=== PATIENT | female | born 1960 | race Caucasian/White ===

== ENCOUNTER 2017-05-04 18:20 | Emergency (ER) | payer BC ==
[2017-05-04 18:23] VITALS: BP 144/88; BMI 34.7
[2017-05-04 18:43] LABS: BILIRUBIN,URINE NEGATIVE (NEGATIVE); BLOOD/HEMOGLOBIN,URINE 1+ (NEGATIVE); GLUCOSE, URINE NEGATIVE (NEGATIVE); KETONES,URINE NEGATIVE (NEGATIVE); LEUKOCYTE ESTERASE ,URINE 3+ (NEGATIVE); NITRITES,URINE NEGATIVE (NEGATIVE); PROTEIN,URINE 1+ (NEGATIVE); UROBILINOGEN,URINE NORMAL (NORMAL)
[2017-05-04 18:52] LABS: APPEARANCE,URINE SLIGHTLY HAZY (CLEAR); COLOR,URINE YELLOW (YELLOW); RBC,URINE 0-2 /HPF (NEGATIVE)
[2017-05-04 18:53] LABS: BACTERIA,URINE 1+ /HPF (NEGATIVE); SQUAMOUS EPITHELIAL CELL,UR FEW /HPF (NEGATIVE)
[2017-05-04] MEDS ORDERED: MORPHINE SULFATE INJ 4 MG IVP ONE (19:08)
[2017-05-04] MEDS ORDERED: MORPHINE SULFATE INJ 4 MG IM ONE (19:10)
[2017-05-04] MEDS ORDERED: MORPHINE SULFATE INJ 4 MG ONE (19:10)
[2017-05-04] MEDS ORDERED: ZOFRAN INJ 4 MG VIAL IM ONE (19:10)
[2017-05-04] MEDS ORDERED: ZOFRAN INJ 4 MG VIAL ONE (19:10)
--- NOTE | 2017-05-04 19:12 | DR.GENAD ---
HPI - PCP Primary Care Physician: OLIVERIO MCKNIGHT - HPI Comment HPI Comment: PATIENT FEELS FEVERISH. NO N/V. SYMTOMS GETTING WORSE. - Complaint/Symptoms Chief Complaint Doctors Comments: GENERALIZE ACHES AND PAIN, RT FLANK PAIN AND LOWER BACK PAIN SINCE THIS AM. Chief Complaint:: PT. C/O LOWER BACK PAIN AND RIGHT FLANK PAIN THAT BEGAN THIS MORNING. PT. DENIES INJURY. 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 PT. SAYS SHE FEELS FEVERISH AND ACHY. - Nurses notes reviewed Nurses Notes Review: Yes - Source History Provided: Patient - Mode of Arrival Mode of Arrival: Ambulatory - Timing Onset of Chief Complaint: 05/04/17 Came on: Suddenly - Duration Duration: Constant Duration: Hours - Severity Severity: Moderate PMH - PMH Past Medical History: Yes Past Medical History: Diabetes, Migraines, Hypertension, Kidney Stones Past Surgical History: Yes Surgical History: Appendectomy, Cholecystectomy, Hysterectomy - Family History History of Family Medical Conditions: Yes Family Medical History: Diabetes Mellitus, Coronary Artery Disease - Social History Does patient currently use any type of tobacco product: No Have you used tobacco products in the last 12 months: No Type of Tobacco Use: None Does any household member use tobacco: No Alcohol Use: None Do you use any recreational Drugs:: No Lives With: Alone Lives Where: Home - infectious screening In the last 2 months have you had wt loss of >10#?: NO Have you had fever, night sweats or hemotysis?: No Have you traveled outside the country in the last 6 months?: No Isolation: Standard ROS - Review of Systems Constitutional: Fever, Weakness, Fatigue, Loss of Appetite. negative: Chills, Diaphoresis Eyes: No Symptoms Reported. negative: Eye Pain, Discharge ENTM: No Symptoms Reported. negative: Ear Pain, Nose Discharge, Nose Congestion , Throat Pain Respiratoy: No Symptoms Reported. negative: Productive Cough, Non-Productive Cough, Short of Breath, Wheezing, Hemoptysis Cardiovascular: No Symptoms Reported. negative: Chest Pain, Edema, Palpitations , Syncope Gastrointestinal/Abdominal: Abdominal Pain, Nausea, Vomiting. negative: Constipation, Diarrhea Genitourinary: No Symptoms Reported. negative: Dysuria, Frequency, Hematuria Neurological: Headache, Weakness, Dizziness Musculoskeletal: Muscle Pain Integumentary: Dryness Hematologic/Lymphatic: No Symptoms Reported Endocrine: No Symptoms Reported All Other Systems: Reviewed and Negative PE - Vital Signs Vitals: Temperature 98.1 F Pulse Rate 103 Respiratory Rate 22 Blood Pressure [Left Arm] 156/90 Blood Pressure [Right Arm] 143/68 Blood Pressure 144/88 O2 Sat by Pulse Oximetry 98 - General Limitations: No Limitations General Appearance: Alert - Head Head Exam: Normal Inspection - Eyes Eye exam: Normal Appearance - ENT ENT Exam: Normal External Ear Exam External Ear Exam: Normal External Inspection TM/Canal Exam: Bilateral Normal Mouth Exam: Normal Inspection Throat Exam: Normal Inspection - Neck Neck Exam: Trachea Midline - Chest Chest Inspection: Symmetric Chest Wall Rise - Respiratory Respiratory Exam: Normal Lung Sounds Bilat Respiratory Exam: Bilateral Clear to Auscultation - Cardiovascular Cardiovascular Exam: Regular Rate, Normal Rhythm, Normal Heart Sounds - Abdominal Exam Abdominal Exam: Normal Bowel Sounds, Soft, Tenderness - Extremities Extremities Exam: Normal Inspection - Back Back Exam: Normal Inspection - Neurologic Neurological Exam: Alert, Oriented X3, CN II-XII Intact - Psychiatric Psychiatric Exam: Normal Affect, Normal Mood - Skin Skin Exam: Normal Color MDM - Differential Diagnosis Differential Diagnosis: UTI, BACK PAIN, KIDNEY STONE, RT FLANK PAIN Course - Treatment Treatment: SEE ORDERS. - Education/Counseling Education/Counseling: Patient, Education Educated On: Treatment, Diagnosis, Needs for Follow Up ROR - Labs Reviewed Laboratory Results Reviewed?: Yes Result Diagrams: 05/04/17 19:17 05/04/17 19:17 Laboratory: WBC 14.1 X10^3/uL (3.6-10.0) H 05/04/17 19:17 RBC 5.06 X10^6/uL (3.5-5.4) 05/04/17 19:17 Hgb 15.1 g/dL (12.0-16.0) 05/04/17 19:17 Hct 43.0 % (36.0-47.0) 05/04/17 19:17 MCV 84.9 fL (80.0-100.0) 05/04/17 19:17 MCH 29.8 pg (27.0-34.0) 05/04/17 19:17 MCHC 35.1 g/dL (33.0-35.0) H 05/04/17 19:17 RDW 13.1 % (11.6-16.5) 05/04/17 19:17 Plt Count 276 X10^3/uL (150.0-450.0) 05/04/17 19:17 MPV 7.3 fL (7.4-11.0) L 05/04/17 19:17 Neut % 46.0 % (42.0-75.0) 05/04/17 19:17 Lymph % 45.8 % (21.0-51.0) 05/04/17 19:17 [place] % 4.8 % (0.0-13.0) 05/04/17 19:17 Eos % 1.1 % (0.9-2.9) 05/04/17 19:17 Baso % 2.3 % (0.2-1.0) H 05/04/17 19:17 Neut # 6.5 x10^3/uL (2.2-4.8) H 05/04/17 19:17 Lymph # 6.4 X10^3/uL (1.3-2.9) H 05/04/17 19:17 [place] # 0.7 x10^3/uL (0.3-0.8) 05/04/17 19:17 Eos # 0.2 x10^3/uL (0.0-0.2) 05/04/17 19:17 Baso # 0.3 X10^3/uL (0.0-0.1) H 05/04/17 19:17 Absolute Nucleated RBC 0.0 /100WBC 05/04/17 19:17 Sodium 136 mmol/L (136-145) 05/04/17 19:17 Corrected Sodium 137 mmol/L (136-145) 05/04/17 19:17 Potassium 3.4 mmol/L (3.5-5.1) L 05/04/17 19:17 Chloride 99 mmol/L (98-107) 05/04/17 19:17 Carbon Dioxide 23.2 mmol/L (21-32) 05/04/17 19:17 BUN 17 mg/dL (7-18) 05/04/17 19:17 Creatinine 1.68 mg/dL (0.55-1.02) H 05/04/17 19:17 Est GFR (MDRD) Af Amer 40 (>60) L 05/04/17 19:17 Est GFR (MDRD) Non-Af 33 (>60) L 05/04/17 19:17 Glucose 155 mg/dL (65-99) H 05/04/17 19:17 Calcium 9.4 mg/dL (8.5-10.1) 05/04/17 19:17 Corrected Calcium TNP 05/04/17 19:17 Total Bilirubin 0.40 mg/dL (0.2-1.0) 05/04/17 19:17 AST 25 Units/L (15-37) 05/04/17 19:17 ALT 47 Units/L (12-78) 05/04/17 19:17 Alkaline Phosphatase 64 Units/L (46-116) 05/04/17 19:17 Total Protein 7.9 g/dL (6.4-8.2) 05/04/17 19: Albumin 4.3 g/dL (3.4-5.0) 05/04/17 19:17 Globulin 3.6 g/dL (2.5-4.5) 05/04/17 19:17 Albumin/Globulin Ratio 1.2 Ratio (1.1-2.1) 05/04/17 19:17 Specimen Type Clean catch urine 05/04/17 18:30 Urine Color Yellow (YELLOW) 05/04/17 18:30 Urine Appearance Slightly hazy (CLEAR) 05/04/17 18:30 Urine pH 5.0 (5.0 - 8.0) 05/04/17 18:30 Ur Specific [place] 1.010 (1.000-1.030) 05/04/17 18:30 Urine Protein 1+ (NEGATIVE) 05/04/17 18:30 Urine Glucose (UA) Negative (NEGATIVE) 05/04/17 18:30 Urine Ketones Negative (NEGATIVE) 05/04/17 18:30 Urine Occult Blood 1+ (NEGATIVE) 05/04/17 18:30 Urine Nitrite Negative (NEGATIVE) 05/04/17 18:30 Urine Bilirubin Negative (NEGATIVE) 05/04/17 18:30 Urine Urobilinogen Normal (NORMAL) 05/04/17 18:30 Ur Leukocyte Esterase 3+ (NEGATIVE) 05/04/17 18:30 Urine RBC 0-2 /HPF (NEGATIVE) 05/04/17 18:30 Urine WBC 25-30 /HPF (NEGATIVE) 05/04/17 18:30 Ur Squamous Epith Cells Few /HPF (NEGATIVE) 05/04/17 18:30 Urine Bacteria 1+ /HPF (NEGATIVE) 05/04/17 18:30 Ur Culture Indicated? Yes/culture set up 05/04/17 18:30 - XRAY XRAY Interpreted by: Radiologist XRAY Findings: REPORT DISCUSS WITH PATIENT. - Diagnosis Discharge Problem: Right flank pain, UTI (urinary tract infection) Back pain Qualifiers: Back pain location: low back pain Chronicity: acute Back pain laterality: right Sciatica presence: without sciatica Qualified Code(s): M54.5 - Low back pain - Discharge Plan Disposition: HOME, SELF-CARE Condition: Stable Prescriptions: Cyclobenzaprine HCl [FLEXERIL 10 MG *] 10 mg PO TID PRN #20 tab PRN Reason: Sulfamethoxazole-Trimethoprim [BACTRIM DS TAB 800/160 MG *] 1 tab PO BID #20 tab Tramadol HCl 50 mg PO Q8H PRN #15 tablet PRN Reason: - Follow ups/Referrals Follow ups/Referrals: TAN KIMBROUGH [Primary Care Provider] - 3 days - Instructions Instructions: Urinary Tract Infection, Flank Pain, [id number], Back Pain, Adult, [id number] Additional Instructions: RETURN TO ED IF WORSE.
[2017-05-04 19:24] LABS: BASOPHILS # (AUTO) 0.3 X10^3/uL (0.0-0.1); BASOPHILS % (AUTO) 2.3 % (0.2-1.0); EOSINOPHILS # (AUTO) 0.2 x10^3/uL (0.0-0.2); EOSINOPHILS % (AUTO) 1.1 % (0.9-2.9); HEMOGLOBIN 15.1 g/dL (12.0-16.0); LYMPHOCYTES # (AUTO) 6.4 X10^3/uL (1.3-2.9); LYMPHOCYTES % (AUTO) 45.8 % (21.0-51.0); MEAN CORPUSCULAR HEMOGLOBIN 29.8 pg (27.0-34.0); MEAN CORPUSCULAR HGB CONC 35.1 g/dL (33.0-35.0); MEAN CORPUSCULAR VOLUME 84.9 fL (80.0-100.0); MEAN PLATELET VOLUME 7.3 fL (7.4-11.0); MONOCYTES # (AUTO) 0.7 x10^3/uL (0.3-0.8); MONOCYTES % (AUTO) 4.8 % (0.0-13.0); NEUTROPHILS # (AUTO) 6.5 x10^3/uL (2.2-4.8); PLATELET COUNT 276 X10^3/uL (150.0-450.0); RED BLOOD COUNT 5.06 X10^6/uL (3.5-5.4); RED CELL DISTRIBUTION WIDTH 13.1 % (11.6-16.5); WHITE BLOOD COUNT 14.1 X10^3/uL (3.6-10.0)
[2017-05-04 19:39] LABS: ALANINE AMINOTRANSFERASE 47 Units/L (12-78); ALBUMIN 4.3 g/dL (3.4-5.0); ALKALINE PHOSPHATASE 64 Units/L (46-116); ASPARTATE AMINO TRANSFERASE 25 Units/L (15-37); BLOOD UREA NITROGEN 17 mg/dL (7-18); CALCIUM 9.4 mg/dL (8.5-10.1); CARBON DIOXIDE 23.2 mmol/L (21-32); CHLORIDE 99 mmol/L (98-107); COR NA(FOR HYPERGLY) 137 mmol/L (136-145); CREATININE 1.68 mg/dL (0.55-1.02); GLUCOSE 155 mg/dL (65-99); SODIUM 136 mmol/L (136-145); TOTAL PROTEIN 7.9 g/dL (6.4-8.2); eGFR BLACK RACES 40 (>60); eGFR NON BLACK RACES 33 (>60)
--- NOTE | 2017-05-04 20:00 | CT ---
CT abdomen and pelvis without contrast Indication: Right flank pain Technique: Helical images through the abdomen and pelvis without contrast. Coronal and sagittal refo rmats provided. Comparison: December 28, 2016. Findings: There is no new lower chest abnormality. Review of bone windows shows no osseous abnormali ty. Minimal hip and spine degenerative change noted. Abdomen: The gallbladder is absent. The liver is fatty. The spleen, pancreas, adrenal glands, stomac h and small bowel show no acute abnormality. A few colonic diverticular noted, noninflamed. Vascular plaque noted. The kidneys are normal without hydroureteronephrosis. Pelvis: Urinary bladder and rectum are normal. Uterus and adnexa are normal. Impression: 1. No renal stone or hydroureteronephrosis. 2. Fatty liver. Correlate with hepatic biochemical profile 3. Minimal spine and pelvis degenerative change. Minimal aortic plaque. Reported By:
[2017-05-04] MEDS ORDERED: BACTRIM DS TAB PO ONE ×2 (20:30→20:34)
[2017-05-04] MEDS ORDERED: ULTRAM PO ONE (20:32)
[2017-05-04] MEDS ORDERED: NORFLEX INJ IM ONE (20:32)
[2017-05-04] MEDS ORDERED: NORFLEX INJ ONE (20:34)
[2017-05-04] MEDS ORDERED: ULTRAM ONE (20:34)
== END 2017-05-04 20:53 | disposition home or self-care (01) ==
LOC: ER 18:25
DX: N39.0 Urinary tract infection, site not specified (principal)
CPT/HCPCS: 36415; 74176; 80053; 81001; 85025; 87086; 96372; 99283; J2270; J2360; J2405

== ENCOUNTER → 2017-07-24 | Outpatient (CLI) | payer BC ==
[2017-07-24 07:56] LABS: BASOPHILS # (AUTO) 0.1 X10^3/uL (0.0-0.1); BASOPHILS % (AUTO) 1.2 % (0.2-1.0); EOSINOPHILS # (AUTO) 0.2 x10^3/uL (0.0-0.2); EOSINOPHILS % (AUTO) 2.5 % (0.9-2.9); HEMATOCRIT 38.4 % (36.0-47.0); HEMOGLOBIN 13.5 g/dL (12.0-16.0); LYMPHOCYTES % (AUTO) 44.4 % (21.0-51.0); MEAN CORPUSCULAR HEMOGLOBIN 30.3 pg (27.0-34.0); MEAN CORPUSCULAR HGB CONC 35.2 g/dL (33.0-35.0); MEAN CORPUSCULAR VOLUME 86.2 fL (80.0-100.0); MEAN PLATELET VOLUME 7.2 fL (7.4-11.0); MONOCYTES # (AUTO) 0.5 x10^3/uL (0.3-0.8); MONOCYTES % (AUTO) 6.8 % (0.0-13.0); NEUTROPHILS % (AUTO) 45.1 % (42.0-75.0); PLATELET COUNT 190 X10^3/uL (150.0-450.0); RED BLOOD COUNT 4.46 X10^6/uL (3.5-5.4); RED CELL DISTRIBUTION WIDTH 12.7 % (11.6-16.5); WHITE BLOOD COUNT 6.7 X10^3/uL (3.6-10.0)
[2017-07-24 08:15] LABS: ALANINE AMINOTRANSFERASE 41 Units/L (12-78); ALBUMIN 3.7 g/dL (3.4-5.0); ALKALINE PHOSPHATASE 57 Units/L (46-116); ASPARTATE AMINO TRANSFERASE 25 Units/L (15-37); BLOOD UREA NITROGEN 13 mg/dL (7-18); CHLORIDE 104 mmol/L (98-107); CHOLESTEROL 294 mg/dL (0-200); COR NA(FOR HYPERGLY) 142 mmol/L (136-145); FREE T4 (FREE THYROXINE) 0.74 ng/dL (0.76-1.46); HDL CHOLESTEROL 42 mg/dL (40-60); SODIUM 141 mmol/L (136-145); TRIGLYCERIDES 421 mg/dL (0-150); TSH (3RD GENERATION) 2.586 uIU/mL (0.358-3.74); eGFR BLACK RACES > 60 (>60); eGFR NON BLACK RACES > 60 (>60)
== END ==
LOC: LAB 07:24
PROVIDERS: ATTEND Nurse Practitioner Family
DX: I10 Essential (primary) hypertension (principal); E78.4 Other hyperlipidemia; E04.1 Nontoxic single thyroid nodule
CPT/HCPCS: 36415; 80053; 80061; 84439; 84443; 84481; 85025

== ENCOUNTER → 2017-08-03 | Outpatient (CLI) | payer BC | LOC: LAB 09:38 | PROVIDERS: ATTEND Nurse Practitioner Family | DX: E87.6 Hypokalemia (principal) | CPT/HCPCS: 36415; 84132 ==

== ENCOUNTER 2017-10-15 07:19 | Day surgery (SDC) | payer BC ==
[~2017-10-15 07:19] MED LIST: NS 1000 ML 1,000 ML ONE
[2017-10-15] MEDS ORDERED: XYLOCAINE 2 % (PLAIN) ONE (08:13)
[2017-10-15] MEDS ORDERED: DIPRIVAN VIAL 20 ML ONE ×3 (08:13→09:08)
[2017-10-15] MEDS ORDERED: VERSED ONE (08:14)
[2017-10-15 09:42] VITALS: BP 124/74
== END 2017-10-15 09:40 | disposition home or self-care (01) ==
LOC: SURG1 07:19
PROVIDERS: ATTEND Internal Medicine Gastroenterology
PROC: 0DBL8ZX Excision of Transverse Colon, Via Natural or Artificial Opening Endoscopic, Diagnostic (ICD-10-PCS; principal; 2017-10-15 07:30)
PROC: 0DJD8ZZ Inspection of Lower Intestinal Tract, Via Natural or Artificial Opening Endoscopic (ICD-10-PCS; principal; 2017-10-15 07:30)
PROC: 0DBK8ZX Excision of Ascending Colon, Via Natural or Artificial Opening Endoscopic, Diagnostic (ICD-10-PCS; principal; 2017-10-15 07:30)
PROC: 3E0H8GC Introduction of Other Therapeutic Substance into Lower GI, Via Natural or Artificial Opening Endoscopic (ICD-10-PCS; principal; 2017-10-15 07:30)
DX: Z12.11 Encounter for screening for malignant neoplasm of colon (principal); K63.5 Polyp of colon; K57.30 Diverticulosis of large intestine without perforation or abscess without bleeding; K64.0 First degree hemorrhoids; D12.2 Benign neoplasm of ascending colon; D12.3 Benign neoplasm of transverse colon
CPT/HCPCS: A4217; J2001; J2250; J3490

== ENCOUNTER 2018-07-09 12:55 | Observation (INO) ==
[2018-07-09] MEDS ORDERED: ZOFRAN INJ 4 MG VIAL IVP PRN (13:39)
[2018-07-09] MEDS: DILAUDID INJ IVP PRN ×3 (13:50→21:37)
[2018-07-09] MEDS: NS 1000 ML 1,000 ML IV SCH (13:50)
[2018-07-09] MEDS ORDERED: ATIVAN TAB 0.5 MG PO ONE (14:23)
[2018-07-09 14:36] LABS: BASOPHILS % (AUTO) 0.4 % (0.2-1.0); EOSINOPHILS # (AUTO) 0.1 x10^3/uL (0.0-0.2); EOSINOPHILS % (AUTO) 1.1 % (0.9-2.9); HEMATOCRIT 38.9 % (36.0-47.0); HEMOGLOBIN 13.4 g/dL (12.0-16.0); LYMPHOCYTES # (AUTO) 3.2 X10^3/uL (1.3-2.9); LYMPHOCYTES % (AUTO) 45.5 % (21.0-51.0); MEAN CORPUSCULAR HEMOGLOBIN 29.7 pg (27.0-34.0); MEAN CORPUSCULAR HGB CONC 34.5 g/dL (33.0-35.0); MEAN PLATELET VOLUME 7.8 fL (7.4-11.0); MONOCYTES # (AUTO) 0.4 x10^3/uL (0.3-0.8); MONOCYTES % (AUTO) 5.1 % (0.0-13.0); NEUTROPHILS # (AUTO) 3.4 x10^3/uL (2.2-4.8); NEUTROPHILS % (AUTO) 47.9 % (42.0-75.0); PLATELET COUNT 257 X10^3/uL (150.0-450.0); RED BLOOD COUNT 4.53 X10^6/uL (3.5-5.4); RED CELL DISTRIBUTION WIDTH 13.3 % (11.6-16.5); WHITE BLOOD COUNT 7.1 X10^3/uL (3.6-10.0)
[2018-07-09 14:45] LABS: ALANINE AMINOTRANSFERASE 26 Units/L (12-78); ALBUMIN 3.5 g/dL (3.4-5.0); ALKALINE PHOSPHATASE 61 Units/L (46-116); ASPARTATE AMINO TRANSFERASE 12 Units/L (15-37); BLOOD UREA NITROGEN 12 mg/dL (7-18); CALCIUM 8.8 mg/dL (8.5-10.1); CARBON DIOXIDE 28.9 mmol/L (21-32); CHLORIDE 106 mmol/L (98-107); COR NA(FOR HYPERGLY) 144 mmol/L (136-145); CREATININE 0.91 mg/dL (0.55-1.02); SODIUM 143 mmol/L (136-145); TOTAL PROTEIN 6.8 g/dL (6.4-8.2); eGFR NON BLACK RACES > 60 (>60)
[2018-07-09 18:41] VITALS: BMI 35.9
[2018-07-09] MEDS: ATIVAN TAB 0.5 MG PO SCH (21:09)
[2018-07-09 23:38] LABS: APPEARANCE,URINE CLEAR (CLEAR); BILIRUBIN,URINE NEGATIVE (NEGATIVE); BLOOD/HEMOGLOBIN,URINE 1+ (NEGATIVE); COLOR,URINE YELLOW (YELLOW); GLUCOSE, URINE NEGATIVE (NEGATIVE); KETONES,URINE NEGATIVE (NEGATIVE); LEUKOCYTE ESTERASE ,URINE 2+ (NEGATIVE); NITRITES,URINE NEGATIVE (NEGATIVE); PROTEIN,URINE NEGATIVE (NEGATIVE); UROBILINOGEN,URINE NORMAL (NORMAL)
[2018-07-09] MEDS: NORCO 7.5/325 MG TAB PO PRN (23:38)
[2018-07-09 23:44] LABS: BACTERIA,URINE NEGATIVE /HPF (NEGATIVE); SQUAMOUS EPITHELIAL CELL,UR FEW /HPF (NEGATIVE)
[2018-07-09 23:45] LABS: AMORPHOUS SEDIMENT,UR TRACE /HPF (NEGATIVE)
[2018-07-10] MEDS: DILAUDID INJ IVP PRN ×6 (01:22→21:06)
[2018-07-10] MEDS: NS 1000 ML 1,000 ML IV SCH ×2 (01:25→15:30)
[2018-07-10 06:13] LABS: BASOPHILS % (AUTO) 0.4 % (0.2-1.0); EOSINOPHILS # (AUTO) 0.2 x10^3/uL (0.0-0.2); HEMATOCRIT 37.5 % (36.0-47.0); LYMPHOCYTES # (AUTO) 4.2 X10^3/uL (1.3-2.9); LYMPHOCYTES % (AUTO) 50.8 % (21.0-51.0); MEAN CORPUSCULAR HEMOGLOBIN 29.9 pg (27.0-34.0); MEAN CORPUSCULAR HGB CONC 34.8 g/dL (33.0-35.0); MEAN CORPUSCULAR VOLUME 85.8 fL (80.0-100.0); MEAN PLATELET VOLUME 7.7 fL (7.4-11.0); MONOCYTES # (AUTO) 0.5 x10^3/uL (0.3-0.8); MONOCYTES % (AUTO) 5.5 % (0.0-13.0); NEUTROPHILS # (AUTO) 3.5 x10^3/uL (2.2-4.8); NEUTROPHILS % (AUTO) 41.3 % (42.0-75.0); PLATELET COUNT 242 X10^3/uL (150.0-450.0); RED BLOOD COUNT 4.37 X10^6/uL (3.5-5.4); RED CELL DISTRIBUTION WIDTH 13.2 % (11.6-16.5); WHITE BLOOD COUNT 8.4 X10^3/uL (3.6-10.0)
[2018-07-10 06:33] LABS: ALANINE AMINOTRANSFERASE 26 Units/L (12-78); ALBUMIN 3.4 g/dL (3.4-5.0); ALKALINE PHOSPHATASE 59 Units/L (46-116); ASPARTATE AMINO TRANSFERASE 14 Units/L (15-37); BLOOD UREA NITROGEN 12 mg/dL (7-18); CALCIUM 8.4 mg/dL (8.5-10.1); CARBON DIOXIDE 28.2 mmol/L (21-32); CHLORIDE 103 mmol/L (98-107); COR NA(FOR HYPERGLY) 142 mmol/L (136-145); SODIUM 141 mmol/L (136-145); TOTAL PROTEIN 6.5 g/dL (6.4-8.2); eGFR NON BLACK RACES > 60 (>60)
[2018-07-10 07:00] LABS: ERYTHROCYTE SEDIMENTATION RATE 10 MM/HOUR (0-20)
[2018-07-10] MEDS: ATIVAN TAB 0.5 MG PO SCH ×2 (08:22→21:06)
[2018-07-10] MEDS: NORCO 7.5/325 MG TAB PO PRN (08:23)
--- NOTE | 2018-07-10 11:57 | DR.UPDATE ---
H&P Update History and Physical Update: History and Physical reviewed and patient examined. H&P ON 07/[address] FUCHS, NO CHANGES Changes noted: NO
--- NOTE | 2018-07-10 13:28 | RAD ---
Examination: Portable AP chest History: Hypertension Comparison reference 07/07/2018 Findings: Continued normal heart size with essentially clear lungs and pleural spaces. Impression: No definite change or acute abnormality identified. Reported By:
[2018-07-10] MEDS: COZAAR PO SCH (13:33)
[2018-07-10 14:24] LABS: RHEUMATOID FACTOR NEGATIVE (NEGATIVE)
[2018-07-10] MEDS ORDERED: NEURONTIN CAP 300 MG PO SCH (21:00)
[2018-07-10] MEDS: COREG TAB 25 MG PO SCH (21:06)
[2018-07-11] MEDS: DILAUDID INJ IVP PRN ×4 (01:10→13:02)
[2018-07-11] MEDS: NS 1000 ML 1,000 ML IV SCH (03:15)
[2018-07-11 06:05] LABS: BASOPHILS # (AUTO) 0.1 X10^3/uL (0.0-0.1); BASOPHILS % (AUTO) 0.9 % (0.2-1.0); EOSINOPHILS # (AUTO) 0.1 x10^3/uL (0.0-0.2); EOSINOPHILS % (AUTO) 2.1 % (0.9-2.9); HEMATOCRIT 37.7 % (36.0-47.0); HEMOGLOBIN 13.1 g/dL (12.0-16.0); LYMPHOCYTES # (AUTO) 3.3 X10^3/uL (1.3-2.9); LYMPHOCYTES % (AUTO) 46.2 % (21.0-51.0); MEAN CORPUSCULAR HGB CONC 34.8 g/dL (33.0-35.0); MEAN CORPUSCULAR VOLUME 86.1 fL (80.0-100.0); MEAN PLATELET VOLUME 7.7 fL (7.4-11.0); MONOCYTES # (AUTO) 0.4 x10^3/uL (0.3-0.8); MONOCYTES % (AUTO) 5.7 % (0.0-13.0); NEUTROPHILS # (AUTO) 3.3 x10^3/uL (2.2-4.8); NEUTROPHILS % (AUTO) 45.1 % (42.0-75.0); PLATELET COUNT 251 X10^3/uL (150.0-450.0); RED BLOOD COUNT 4.38 X10^6/uL (3.5-5.4); WHITE BLOOD COUNT 7.2 X10^3/uL (3.6-10.0)
[2018-07-11 06:30] LABS: ALANINE AMINOTRANSFERASE 31 Units/L (12-78); ALBUMIN 3.5 g/dL (3.4-5.0); ALKALINE PHOSPHATASE 63 Units/L (46-116); ASPARTATE AMINO TRANSFERASE 19 Units/L (15-37); BLOOD UREA NITROGEN 10 mg/dL (7-18); CALCIUM 8.6 mg/dL (8.5-10.1); CARBON DIOXIDE 32.1 mmol/L (21-32); CHLORIDE 101 mmol/L (98-107); COR NA(FOR HYPERGLY) 141 mmol/L (136-145); SODIUM 140 mmol/L (136-145); TOTAL PROTEIN 6.8 g/dL (6.4-8.2); eGFR NON BLACK RACES > 60 (>60)
[2018-07-11] MEDS ORDERED: MAGNESIUM SULFATE 1 GRAM/100 mL PREMIX 1 GM/100 ML BAG IV PRN (06:36)
[2018-07-11] MEDS ORDERED: K-RIDER 10 MEQ/NS 100 ML 10 MEQ/100 ML BAG IV PRN (06:36)
[2018-07-11] MEDS ORDERED: K-LYTE EFFERVESCENT PO PRN (06:36)
[2018-07-11] MEDS ORDERED: POTASSIUM CHLORIDE LIQ 20 MEQ UDC PO PRN (06:36)
[2018-07-11] MEDS ORDERED: POTASSIUM CHL 60 MEQ/NS 0.45% 500 ML IV PRN (06:36)
[2018-07-11] MEDS ORDERED: POTASSIUM CHL 40 MEQ/NS 0.45% 500 ML IV PRN (06:36)
[2018-07-11] MEDS: COZAAR PO SCH (08:59)
[2018-07-11] MEDS: COREG TAB 25 MG PO SCH (08:59)
[2018-07-11] MEDS: ATIVAN TAB 0.5 MG PO SCH (08:59)
[2018-07-11] MEDS ORDERED: CELEXA PO SCH (09:00)
[2018-07-11] MEDS ORDERED: LOSARTAN POTASSIUM 50 MG PO SCH (09:00)
[2018-07-11 12:30] VITALS: BP 132/60
--- NOTE | 2018-07-11 14:15 | PCM.PROG ---
Progress Note - Progress Note for Day of Date of Exam: 07/10/18 - Subjective Subjective: 58 WF DIRECT ADMIT FROM DR VILLEDA OFFICE ON 07/09 WITH ACUTE EXACERBATION OF MYALGIAS AND PAIN FROM CHRONIC MYOFACIAL PAIN SYNDROME. PT HAS BEEN ON GENTLE HYDRATION WITH PAIN CONTROL, PT REPORTS SOME IMPROVEMENT THIS AM. CO MUSCLE PAIN ALL OVER "LIKE THE FLU". PT DENIES ANY FEVER OR RESP SYMPTOMS. PT STATES SHE HAS "NOT HAD FLARE IN VERY LONG TIME" - Past Medical Family Social History Past Med/Fam/Surg Hx: No changes since H&P Allergies: Allergies acetaminophen [From Percocet] Allergy (Verified 07/09/18 18:19) alprazolam [From Xanax] Allergy (Verified 07/09/18 18:19) aspirin Allergy (Verified 07/07/18 23:22) diphenhydramine [From Benadryl] Allergy (Verified 07/07/18 23:22) ketorolac [From Toradol] Allergy (Verified 07/07/18 23:22) oxycodone [From Percocet] Allergy (Verified 07/09/18 18:19) Penicillins Allergy (Verified 07/07/18 23:22) promethazine [From Phenergan] Allergy (Verified 07/07/18 23:22) Abwdjie-Rtx-Ueq Reductase Inhibitor Allergy (Verified 07/07/18 23:22) STEROIDS Allergy (Uncoded 07/07/18 23:22) - Review of Systems ROS: No change since H&P - Vital Signs and I&O's Vital Signs: Temperature 98.4 F Pulse Rate [Left Brachial] 69 Pulse Rate [Right Apical] 61 Respiratory Rate 20 Blood Pressure [Left Arm] 132/60 Blood Pressure [Right Arm] 130/60 Blood Pressure 142/62 O2 Sat by Pulse Oximetry 97 Intake and Output: Intake & Output 07/09/18 07/10/18 07/11/18 07/12/18 11:59 11:59 11:59 11:59 Intake Total 1690 / 1690 2460 / 2460 Output Total 1100 / 1100 Balance 590 / 590 2460 / 2460 - Physical Exam Eyes: Normal Ear: Normal Nose: Normal Throat: Normal Respiratory: Normal Cardiovascular: Normal : Normal Auscultation: Bowel Sounds: Normal Palpation: Normal Tenderness: Normal Skin: Normal Musculoskeletal: Arm, Leg, Back:Thoracic, Back:Lumbar, Tender Mood Description: Calm, Depressed Speech Pattern: Clear, Appropriate - Laboratory and Diagnostics Result Diagrams: 07/11/18 04:15 07/11/18 04:15 Labs: Laboratory WBC 7.2 X10^3/uL (3.6-10.0) 07/11/18 04:15 RBC 4.38 X10^6/uL (3.5-5.4) 07/11/18 04:15 Hgb 13.1 g/dL (12.0-16.0) 07/11/18 04:15 Hct 37.7 % (36.0-47.0) 07/11/18 04:15 MCV 86.1 fL (80.0-100.0) 07/11/18 04:15 MCH 30.0 pg (27.0-34.0) 07/11/18 04:15 MCHC 34.8 g/dL (33.0-35.0) 07/11/18 04:15 RDW 13.0 % (11.6-16.5) 07/11/18 04:15 Plt Count 251 X10^3/uL (150.0-450.0) 07/11/18 04:15 MPV 7.7 fL (7.4-11.0) 07/11/18 04:15 Neut % (Auto) 45.1 % (42.0-75.0) 07/11/18 04:15 Lymph % (Auto) 46.2 % (21.0-51.0) 07/11/18 04:15 [place] % (Auto) 5.7 % (0.0-13.0) 07/11/18 04:15 Eos % (Auto) 2.1 % (0.9-2.9) 07/11/18 04:15 Baso % (Auto) 0.9 % (0.2-1.0) 07/11/18 04:15 Neut # (Auto) 3.3 x10^3/uL (2.2-4.8) 07/11/18 04:15 Lymph # (Auto) 3.3 X10^3/uL (1.3-2.9) H 07/11/18 04:15 [place] # (Auto) 0.4 x10^3/uL (0.3-0.8) 07/11/18 04:15 Eos # (Auto) 0.1 x10^3/uL (0.0-0.2) 07/11/18 04:15 Baso # (Auto) 0.1 X10^3/uL (0.0-0.1) 07/11/18 04:15 Absolute Nucleated RBC 0.0 /100WBC 07/11/18 04:15 ESR 10 MM/HOUR (0-20) 07/10/18 04:20 Sodium 140 mmol/L (136-145) 07/11/18 04:15 Corrected Sodium 141 mmol/L (136-145) 07/11/18 04:15 Potassium 3.4 mmol/L (3.5-5.1) L 07/11/18 04:15 Chloride 101 mmol/L (98-107) 07/11/18 04:15 Carbon Dioxide 32.1 mmol/L (21-32) H 07/11/18 04:15 BUN 10 mg/dL (7-18) 07/11/18 04:15 Creatinine 0.90 mg/dL (0.55-1.02) 07/11/18 04:15 Est GFR (MDRD) Af Amer > 60 (>60) 07/11/18 04:15 Est GFR (MDRD) Non-Af > 60 (>60) 07/11/18 04:15 Glucose 132 mg/dL (65-99) H 07/11/18 04:15 POC Glucose (mg/dL) 121 mg/dL (65-99) H 07/11/18 11:43 Calcium 8.6 mg/dL (8.5-10.1) 07/11/18 04:15 Corrected Calcium TNP 07/11/18 04:15 Magnesium 1.9 mg/dL (1.7-2.9) 07/11/18 04:15 Total Bilirubin 0.30 mg/dL (0.2-1.0) 07/11/18 04:15 AST 19 Units/L (15-37) 07/11/18 04:15 ALT 31 Units/L (12-78) 07/11/18 04:15 Alkaline Phosphatase 63 Units/L (46-116) 07/11/18 04:15 C-Reactive Protein 5.70 mg/L (0-3.0) H 07/10/18 04:20 Total Protein 6.8 g/dL (6.4-8.2) 07/11/18 04:15 Albumin 3.5 g/dL (3.4-5.0) 07/11/18 04:15 Globulin 3.3 g/dL (2.5-4.5) 07/11/18 04:15 Albumin/Globulin Ratio 1.1 Ratio (1.1-2.1) 07/11/18 04:15 Specimen Type Clean catch urine 07/09/18 23:27 Urine Color Yellow (YELLOW) 07/09/18 23:27 Urine Appearance Clear (CLEAR) 07/09/18 23:27 Urine pH 6.0 (5.0 - 8.0) 07/09/18 23:27 Ur Specific [place] 1.015 (1.000-1.030) 07/09/18 23:27 Urine Protein Negative (NEGATIVE) 07/09/18 23:27 Urine Glucose (UA) Negative (NEGATIVE) 07/09/18 23:27 Urine Ketones Negative (NEGATIVE) 07/09/18 23:27 Urine Occult Blood 1+ (NEGATIVE) 07/09/18 23:27 Urine Nitrite Negative (NEGATIVE) 07/09/18 23:27 Urine Bilirubin Negative (NEGATIVE) 07/09/18 23:27 Urine Urobilinogen Normal (NORMAL) 07/09/18 23:27 Ur Leukocyte Esterase 2+ (NEGATIVE) 07/09/18 23:27 Urine RBC 3-5 /HPF (NONE SEEN) 07/09/18 23:27 Urine WBC 3-5 /HPF (NONE SEEN) 07/09/18 23:27 Ur Squamous Epith Cells Few /HPF (NEGATIVE) 07/09/18 23:27 Amorphous Sediment Trace /HPF (NEGATIVE) 07/09/18 23:27 Urine Bacteria Negative /HPF (NEGATIVE) 07/09/18 23:27 Ur Culture Indicated? No/not indicated 07/09/18 23:27 Rheumatoid Factor Negative (NEGATIVE) 07/10/18 04:20 - Plan (1) Myofascial pain dysfunction syndrome Status: Acute Plan: REPEAT AM LABS CBC CMP. CRP ELEVATED ON ADMISSION, PT CANNOT TAKE STEROIDS. CONTINUE GENTLE HYDRATION, BP CONTROL. PAIN MANAGEMENT, ENCOURAGE AMBULATION/PHYSICAL THERAPY (2) Weakness Status: Acute (3) Hypertension Status: Acute (4) Acute hypokalemia Status: Acute
[2018-07-11] MEDS ORDERED: DILAUDID INJ IVP ONE (15:20)
[2018-07-15 06:17] LABS: ANTI-NUCLEAR ANTIBODY TEST None Detected (None Detected)
== END 2018-07-11 15:41 | disposition home or self-care (01) ==
LOC: MED/SURG
PROVIDERS: ADMIT Internal Medicine; ATTEND Internal Medicine
DX: I10 Essential (primary) hypertension; R79.82 Elevated C-reactive protein (CRP); M79.1 Myalgia; E87.6 Hypokalemia; F41.8 Other specified anxiety disorders; R73.09 Other abnormal glucose; R53.1 Weakness; R11.0 Nausea; R52 Pain, unspecified; Z79.899 Other long term (current) drug therapy
CPT/HCPCS: 36415; 71010; 71045; 80053; 81001; 83735; 85025; 85652; 86038; 86140; 86308; 86430; 99217; A4216; A4222; G0378; J1170; J7030; J8499

== ENCOUNTER 2018-07-12 02:26 | Observation (INO) ==
[2018-07-12] MEDS ORDERED: ZOFRAN INJ 4 MG VIAL IM ONE (03:30)
[2018-07-12] MEDS ORDERED: DILAUDID INJ IM ONE (03:30)
[2018-07-12] MEDS ORDERED: ZOFRAN INJ 4 MG VIAL ONE (03:33)
[2018-07-12] MEDS ORDERED: DILAUDID INJ ONE (03:33)
--- NOTE | 2018-07-12 04:28 | DR.FBACK ---
HPI Time Seen Time seen: 03:18 PCP Primary Care Physician: KARY KIMBROUGH Complaint Chief Complaint Doctor Comments: Patient was discharged yesterday from the hospital and continues to have pain that has gotten worse. Pain just on the left side and radiates down the left leg. States was not given prescriptions for medication that she was on in hospital. Chief Complaint:: STATES WAS DISCHARGED YESTERDAY BUT EVER SINCE THEN PAIN HAS BEEN WORSE AND NOT GENERALIZED JUST ON THE LEFT SIDE AND RADIATING DOWN LEFT LEG. STATES THEY WERE GIVING ATIVAN IN HOSPITAL AND DIDNT D/C HER WITH A PRESCRIPTION FOR ANY AND SHE NEEDS SOME FOR NERVES. Reviewed Nurses Notes Review: Yes Source History Provided: Patient Mode of Arrival Mode of Arrival: Ambulatory Timing Onset of Chief Complaint: 07/12/18 Duration Duration: Constant PMH PMH Past Medical History: Yes Past Medical History: Anxiety, Depression, Diabetes, Migraines, Hypertension and Kidney Stones Past Surgical History: Yes Surgical History: Appendectomy, Cholecystectomy and Hysterectomy Family History History of Family Medical Conditions: Yes Family Medical History: Diabetes Mellitus, [place], Coronary Artery Disease, Heart Failure and Hypertension Social History Does patient currently use any type of tobacco product: No Have you used tobacco products in the last 12 months: No Type of Tobacco Use: None Does any household member use tobacco: No Alcohol Use: None Do you use any recreational Drugs:: No Lives With: Family Lives Where: Home infectious screening In the last 2 months have you had wt loss of >10#?: NO Have you had fever, night sweats or hemotysis?: No Have you traveled outside the country in the last 6 months?: No Isolation: Standard ROS Review of Systems Constitutional: No Symptoms Reported Eyes: No Symptoms Reported ENTM: No Symptoms Reported Respiratoy: No Symptoms Reported Cardiovascular: No Symptoms Reported Gastrointestinal/Abdominal: No Symptoms Reported Genitourinary: No Symptoms Reported Neurological: Anxiety Musculoskeletal: See HPI and Joint Pain Integumentary: No Symptoms Reported Hematologic/Lymphatic: No Symptoms Reported Endocrine: No Symptoms Reported Psychiatric: Anxiety All Other Systems: Reviewed and Negative PE Vitals Vital Signs: Temp Pulse Pulse Resp BP BP BP 07/12/18 09:35 98 F 65 20 176/81 07/12/18 09:21 80 18 134/62 07/12/18 07:10 168/82 07/12/18 06:15 197/11 07/12/18 06:00 231/100 07/12/18 05:58 239/112 07/12/18 05:55 70 232/108 07/12/18 05:45 132/69 07/12/18 02:33 98.5 F 71 20 139/67 07/11/18 12:00 132/60 132/60 07/11/18 00:00 130/60 Pulse Ox 07/12/18 09:35 97 07/12/18 09:21 07/12/18 07:10 07/12/18 06:15 07/12/18 06:00 07/12/18 05:58 07/12/18 05:55 07/12/18 05:45 07/12/18 02:33 98 07/11/18 12:00 07/11/18 00:00 General Limitations: No Limitations General Appearance: Alert and Anxious Head Head Exam: Normal Inspection Eyes Eye exam: Normal Appearance ENT ENT Exam: Normal Exam Chest Chest Inspection: Normal Inspection Respiratory Respiratory Exam: Normal Lung Sounds Bilat Cardiovascular Cardiovascular Exam: Regular Rate and Normal Rhythm Abdominal Exam Abdominal Exam: Normal Inspection, Normal Bowel Sounds and Soft Genitourinary External Exam: Female: Deferred : Speculum Exam (Female): Deferred : Bimanual Exam (female): Deferred Extremities Extremities Exam: Normal Inspection Back Back Exam: Normal Inspection Neurological Neurological Exam: Alert and Oriented X3 Psychiatric Psychiatric Exam: Normal Affect and Anxious Skin Skin Exam: Warm, Dry, Intact and Normal Color COURSE Consultation Called: 08:20 Call Returned: 08:32 Consultation Comments: Discussed with Dr. Kerr agrees to admit patient to observations Education/Counseling Education/Counseling: Patient Educated On: Other (admission) ROR Labs Reviewed Laboratory Results Reviewed?: Yes Result Diagrams: 07/12/18 06:54 07/12/18 06:54 Laboratory: WBC 6.7 X10^3/uL (3.6-10.0) 07/12/18 06:54 RBC 4.31 X10^6/uL (3.5-5.4) 07/12/18 06:54 Hgb 13.0 g/dL (12.0-16.0) 07/12/18 06:54 Hct 36.8 % (36.0-47.0) 07/12/18 06:54 MCV 85.3 fL (80.0-100.0) 07/12/18 06:54 MCH 30.1 pg (27.0-34.0) 07/12/18 06:54 MCHC 35.3 g/dL (33.0-35.0) H 07/12/18 06:54 RDW 13.3 % (11.6-16.5) 07/12/18 06:54 Plt Count 245 X10^3/uL (150.0-450.0) 07/12/18 06:54 MPV 7.2 fL (7.4-11.0) L 07/12/18 06:54 Neut % (Auto) 43.5 % (42.0-75.0) 07/12/18 06:54 Lymph % (Auto) 46.8 % (21.0-51.0) 07/12/18 06:54 [place] % (Auto) 6.5 % (0.0-13.0) 07/12/18 06:54 Eos % (Auto) 2.2 % (0.9-2.9) 07/12/18 06:54 Baso % (Auto) 1.0 % (0.2-1.0) 07/12/18 06:54 Neut # (Auto) 2.9 x10^3/uL (2.2-4.8) 07/12/18 06:54 Lymph # (Auto) 3.2 X10^3/uL (1.3-2.9) H 07/12/18 06:54 [place] # (Auto) 0.4 x10^3/uL (0.3-0.8) 07/12/18 06:54 Eos # (Auto) 0.2 x10^3/uL (0.0-0.2) 07/12/18 06:54 Baso # (Auto) 0.1 X10^3/uL (0.0-0.1) 07/12/18 06:54 Absolute Nucleated RBC 0.0 /100WBC 07/12/18 06:54 Sodium 140 mmol/L (136-145) 07/12/18 06:54 Corrected Sodium 141 mmol/L (136-145) 07/12/18 06:54 Potassium 3.7 mmol/L (3.5-5.1) 07/12/18 06:54 Chloride 102 mmol/L (98-107) 07/12/18 06:54 Carbon Dioxide 32.4 mmol/L (21-32) H 07/12/18 06:54 BUN 12 mg/dL (7-18) 07/12/18 06:54 Creatinine 0.83 mg/dL (0.55-1.02) 07/12/18 06:54 Est GFR (MDRD) Af Amer > 60 (>60) 07/12/18 06:54 Est GFR (MDRD) Non-Af > 60 (>60) 07/12/18 06:54 Glucose 134 mg/dL (65-99) H 07/12/18 06:54 Calcium 8.9 mg/dL (8.5-10.1) 07/12/18 06:54 Corrected Calcium TNP 07/12/18 06:54 Total Bilirubin 0.30 mg/dL (0.2-1.0) 07/12/18 06:54 AST 19 Units/L (15-37) 07/12/18 06:54 ALT 31 Units/L (12-78) 07/12/18 06:54 Alkaline Phosphatase 66 Units/L (46-116) 07/12/18 06:54 Total Protein 6.8 g/dL (6.4-8.2) 07/12/18 06:54 Albumin 3.6 g/dL (3.4-5.0) 07/12/18 06:54 Globulin 3.2 g/dL (2.5-4.5) 07/12/18 06:54 Albumin/Globulin Ratio 1.1 Ratio (1.1-2.1) 07/12/18 06:54 XRAY XRAY Interpreted by: Radiologist XRAY Findings: Discussed findings with patient Diagnosis Discharge Problem: Sciatica of left side, Back pain, Intractable pain Narrative Support Text: 08:[address] Kerr agrees to admit patient. Instructions Instructions: Sciatica, [id number] Back Pain, Adult, [id number]
[2018-07-12] MEDS ORDERED: ATIVAN TAB 1 MG PO ONE (05:23)
[2018-07-12] MEDS ORDERED: ATIVAN TAB 1 MG ONE (05:24)
--- NOTE | 2018-07-12 07:00 | RAD ---
Examination: Left hip, two views History: Fell Findings: No definite fracture or dislocation. The femoral head is in normal position. The joint spac e is normal and symmetric with the right hip. Impression: No acute left hip injury demonstrated. Reported By:
--- NOTE | 2018-07-12 07:01 | RAD ---
Examination: Left shoulder, two views History: Fell Findings: 2 frontal projections of the shoulder demonstrate no fracture or obvious displacement. Ther e is mild degenerative change at AC and glenohumeral joints. Impression: No acute findings. Degenerative changes. In the setting of acute shoulder trauma, orthogo nal views are helpful to exclude subtle glenohumeral abnormality. Reported By:
--- NOTE | 2018-07-12 07:01 | RAD ---
Lumbar spine-three views Indication: Pain after fall Findings: There is multilevel disc degenerative change and facet arthropathy without cortical lucency or malalignment. Spine curves to the right. Cholecystectomy clips noted Impression: Spine degenerative change without acute fracture. Reported By:
[2018-07-12 07:06] LABS: BASOPHILS # (AUTO) 0.1 X10^3/uL (0.0-0.1); EOSINOPHILS # (AUTO) 0.2 x10^3/uL (0.0-0.2); EOSINOPHILS % (AUTO) 2.2 % (0.9-2.9); HEMATOCRIT 36.8 % (36.0-47.0); LYMPHOCYTES # (AUTO) 3.2 X10^3/uL (1.3-2.9); LYMPHOCYTES % (AUTO) 46.8 % (21.0-51.0); MEAN CORPUSCULAR HEMOGLOBIN 30.1 pg (27.0-34.0); MEAN CORPUSCULAR HGB CONC 35.3 g/dL (33.0-35.0); MEAN CORPUSCULAR VOLUME 85.3 fL (80.0-100.0); MEAN PLATELET VOLUME 7.2 fL (7.4-11.0); MONOCYTES # (AUTO) 0.4 x10^3/uL (0.3-0.8); MONOCYTES % (AUTO) 6.5 % (0.0-13.0); NEUTROPHILS # (AUTO) 2.9 x10^3/uL (2.2-4.8); NEUTROPHILS % (AUTO) 43.5 % (42.0-75.0); PLATELET COUNT 245 X10^3/uL (150.0-450.0); RED BLOOD COUNT 4.31 X10^6/uL (3.5-5.4); RED CELL DISTRIBUTION WIDTH 13.3 % (11.6-16.5); WHITE BLOOD COUNT 6.7 X10^3/uL (3.6-10.0)
--- NOTE | 2018-07-12 07:07 | RAD ---
Examination: Left knee, three views History: Fell Findings: There is no evidence for fracture, dislocation, joint space abnormality or synovial effusio n. There is slight degenerative narrowing of the medial compartment. Impression: No acute injury demonstrated. Reported By:
[2018-07-12 07:14] LABS: ALANINE AMINOTRANSFERASE 31 Units/L (12-78); ALBUMIN 3.6 g/dL (3.4-5.0); ALKALINE PHOSPHATASE 66 Units/L (46-116); ASPARTATE AMINO TRANSFERASE 19 Units/L (15-37); BLOOD UREA NITROGEN 12 mg/dL (7-18); CALCIUM 8.9 mg/dL (8.5-10.1); CARBON DIOXIDE 32.4 mmol/L (21-32); CHLORIDE 102 mmol/L (98-107); COR NA(FOR HYPERGLY) 141 mmol/L (136-145); CREATININE 0.83 mg/dL (0.55-1.02); SODIUM 140 mmol/L (136-145); TOTAL PROTEIN 6.8 g/dL (6.4-8.2); eGFR NON BLACK RACES > 60 (>60)
[2018-07-12] MEDS ORDERED: ZOFRAN INJ 4 MG VIAL IVP PRN (09:32)
[2018-07-12] MEDS ORDERED: LOSARTAN POTASSIUM 50 MG PO SCH (09:45)
[2018-07-12] MEDS: ATIVAN TAB 1 MG PO SCH ×3 (09:45→21:20)
[2018-07-12] MEDS: DILAUDID INJ IVP PRN ×3 (09:45→21:17)
[2018-07-12 10:09] VITALS: BMI 36.8
[2018-07-12] MEDS: NS 1000 ML 1,000 ML IV SCH ×2 (10:30→23:13)
[2018-07-12] MEDS: CELEXA PO SCH (10:35)
[2018-07-12] MEDS: COZAAR PO SCH (10:35)
[2018-07-12] MEDS: COREG TAB 25 MG PO SCH ×2 (10:35→20:26)
[2018-07-12] MEDS ORDERED: ATIVAN INJ 2 MG VIAL IVP SCH (14:00)
[2018-07-12] MEDS ORDERED: SOLU-Medrol 40 MG VIAL IVP ONE (14:30)
[2018-07-12] MEDS: PROTONIX INJ 40 MG VIAL IVP SCH (14:53)
--- NOTE | 2018-07-12 16:49 | CT ---
HISTORY: 58-year-old female status post fall this morning with left hip pain. Study: [facility] [place] protocol CT of the pelvis. Comparison: Radiographs of left hip this date, CT abdomen and pelvis 05/04/2017. Technique: Multiple contiguous axial images of the pelvis were obtained in bone and soft tissue windo ws. Bone and soft tissue coronal and sagittal reformats are provided. Findings: No acute fracture or malalignment of the bony pelvis. SI joints and pubic symphysis are congruent. Fe moral heads are well rounded and seated within the acetabulum bilaterally. Imaged small bowel is unremarkable. Diverticular disease without CT evidence of diverticulitis. Statu s post hysterectomy with vaginal cuff and adnexa unremarkable. Multiple pelvic phleboliths are presen t. Bladder is significantly distended. Female genitalia and perineum are unremarkable. Mild atherosclerotic calcification of the imaged vasculature. Stable calcified soft tissue granulomas within the bilateral flanks, right greater than left. IMPRESSION: 1. No acute fracture or malalignment of the bony pelvis. 2. No acute intrapelvic process. 3. Stable chronic findings as above. Reported By:
[2018-07-12] MEDS: PROCARDIA XL PO SCH (20:25)
[2018-07-12] MEDS: VISTARIL PO SCH (20:25)
[2018-07-12] MEDS: NEURONTIN CAP 300 MG PO SCH (20:26)
[2018-07-12] MEDS ORDERED: NS 100 ML IV + SPIKE MINIBAG* 100 ML IV ONE (21:15)
[2018-07-13] MEDS: DILAUDID INJ IVP PRN ×5 (04:34→22:01)
[2018-07-13] MEDS: ATIVAN TAB 1 MG PO SCH ×3 (05:01→21:15)
[2018-07-13 05:13] LABS: BASOPHILS % (AUTO) 0.4 % (0.2-1.0); EOSINOPHILS % (AUTO) 0.1 % (0.9-2.9); HEMATOCRIT 37.3 % (36.0-47.0); HEMOGLOBIN 13.1 g/dL (12.0-16.0); LYMPHOCYTES # (AUTO) 1.5 X10^3/uL (1.3-2.9); LYMPHOCYTES % (AUTO) 17.3 % (21.0-51.0); MEAN CORPUSCULAR HEMOGLOBIN 30.4 pg (27.0-34.0); MEAN CORPUSCULAR HGB CONC 35.1 g/dL (33.0-35.0); MEAN CORPUSCULAR VOLUME 86.4 fL (80.0-100.0); MEAN PLATELET VOLUME 7.9 fL (7.4-11.0); MONOCYTES # (AUTO) 0.4 x10^3/uL (0.3-0.8); MONOCYTES % (AUTO) 4.5 % (0.0-13.0); NEUTROPHILS # (AUTO) 6.9 x10^3/uL (2.2-4.8); NEUTROPHILS % (AUTO) 77.7 % (42.0-75.0); PLATELET COUNT 277 X10^3/uL (150.0-450.0); RED BLOOD COUNT 4.31 X10^6/uL (3.5-5.4); RED CELL DISTRIBUTION WIDTH 13.2 % (11.6-16.5); WHITE BLOOD COUNT 8.9 X10^3/uL (3.6-10.0)
[2018-07-13 05:31] LABS: ALANINE AMINOTRANSFERASE 33 Units/L (12-78); ALBUMIN 3.4 g/dL (3.4-5.0); ALKALINE PHOSPHATASE 71 Units/L (46-116); ASPARTATE AMINO TRANSFERASE 11 Units/L (15-37); BLOOD UREA NITROGEN 14 mg/dL (7-18); CALCIUM 8.7 mg/dL (8.5-10.1); CARBON DIOXIDE 29.9 mmol/L (21-32); CHLORIDE 104 mmol/L (98-107); COR NA(FOR HYPERGLY) 143 mmol/L (136-145); CREATININE 0.98 mg/dL (0.55-1.02); SODIUM 141 mmol/L (136-145); TOTAL PROTEIN 6.8 g/dL (6.4-8.2); eGFR NON BLACK RACES > 60 (>60)
--- NOTE | 2018-07-13 06:21 | CT ---
HISTORY: Injury, fall, left shoulder pain Study: CT left shoulder without contrast Comparison: Plain films same date Technique: Axial noncontrast images with coronal and sagittal reformats. Dose reduction procedures we re used with mA/kv adjusted for body size. Findings: The sternoclavicular joint, The clavicle and AC joints are intact. The scapula is intact. The glenohu meral joint and proximal humerus are intact. The left upper ribs are intact. The visualized portions of the left lung apex are clear. No periarticular soft tissue abnormality is identified. IMPRESSION: No significant abnormality identified Reported By:
--- NOTE | 2018-07-13 06:29 | CT ---
HISTORY: Injury, fall, low back pain Study: CT lumbar spine without contrast Comparison: Plain films same date Technique: Axial noncontrast images with coronal and sagittal reformats. Dose reduction procedures we re used with mA/kv adjusted for body size. Findings: The bones are osteopenic. The alignment is normal. The vertebral bodies are of average height. No com pression fractures are identified. The pedicles, spinous processes, and posterior elements appear int act as do the sternum and SI joints. The disc levels are evaluated as follows: L1-2 level: No evidence for compressive disc disease. The neural foramina are patent. The joints are normal. L2-3 level: No evidence for compressive disc disease. The neural foramina are patent. The joints are normal. L3-4 level: Mild concentric disc bulging effaces the thecal sac. The neural foramina are patent. The joints are normal. L4-5 level: Concentric disc bulging effaces the thecal sac and contributes along with pedicular short ening and facet arthropathy to moderate lateral recess narrowing bilaterally. L5-S1 level: There is mild broad-based disc bulging with a small central disc protrusion which abuts but does not displace the S1 nerve roots. The neural foramina are patent. Bilateral facet arthropathy is identified. IMPRESSION: No acute traumatic abnormality identified Osteopenia Evaluation of each disc level given in detail above Reported By:
[2018-07-13] MEDS: COREG TAB 25 MG PO SCH ×2 (09:04→20:34)
[2018-07-13] MEDS: CELEXA PO SCH (09:04)
[2018-07-13] MEDS: COZAAR PO SCH (09:05)
[2018-07-13] MEDS: PROTONIX INJ 40 MG VIAL IVP SCH (09:05)
[2018-07-13] MEDS: NS 1000 ML 1,000 ML IV SCH (13:40)
[2018-07-13] MEDS: PROCARDIA XL PO SCH (20:33)
[2018-07-13] MEDS: VISTARIL PO SCH (20:33)
--- NOTE | 2018-07-13 20:49 | PCM.PROG ---
Progress Note - Progress Note for Day of Date of Exam: 07/13/18 - Subjective Subjective: WAS READMITTED YESTERDAY FOR COMPLAINTS OF PERSISTENT PAIN TO THE LEFT HIP AND LEFT LEG. SHE STATES THAT PAIN IS WORSE THAN WHEN SHE WAS DISCHARGED. TODAY, SHE IS ALERT AND ORIENTED, LYING IN BED ON MORNING ROUNDS. SHE CONTINUES WITH COMPLAINTS OF PAIN AND STATES THAT SHE IS HAVING A DIFFICULT TIME PERFORMING ADLs WITHOUT SEVERE PAIN. ON EXAMINATION, HEART IS REGULAR IN RATE AND RHYTHM. BILATERAL LUNGS ARE CLEAR TO AUSCULTATION. ABDOMEN IS ROUND, SOFT, AND NON-TENDER WITH NORMAL BOWEL SOUNDS NOTED IN ALL QUADRANTS. HER VITALS THIS MORNING ARE 97.9-76-18-98%-132/80. SHE IS HEMODYNAMICALLY STABLE TODAY. TODAY, WE WILL DISCONTINUE THE CELEXA THAT SHE IS CURRENTLY ON AND START CYMBALTA 30MG PO DAILY. OTHERWISE, WE WILL FOLLOW UP WITH AM LABS AND CONTINUE TO MONITOR PATIENT. - Past Medical Family Social History Past Med/Fam/Surg Hx: No changes since H&P Allergies: Allergies acetaminophen [From Percocet] Allergy (Verified 07/09/18 18:19) alprazolam [From Xanax] Allergy (Verified 07/09/18 18:19) aspirin Allergy (Verified 07/07/18 23:22) diphenhydramine [From Benadryl] Allergy (Verified 07/07/18 23:22) ketorolac [From Toradol] Allergy (Verified 07/07/18 23:22) oxycodone [From Percocet] Allergy (Verified 07/09/18 18:19) Penicillins Allergy (Verified 07/07/18 23:22) promethazine [From Phenergan] Allergy (Verified 07/07/18 23:22) Izdfzfa-Pnf-Ojv Reductase Inhibitor Allergy (Verified 07/07/18 23:22) STEROIDS Allergy (Uncoded 07/07/18 23:22) - Review of Systems ROS: No change since H&P - Vital Signs and I&O's Vital Signs: Temperature 98.4 F Pulse Rate [Left Brachial] 74 Pulse Rate [Right] 81 Pulse Rate 71 Respiratory Rate 20 Blood Pressure [Left Arm] 130/65 Blood Pressure [Right Arm] 123/73 Blood Pressure 139/67 O2 Sat by Pulse Oximetry 95 Intake and Output: Intake & Output 09/0207/12/18 07/13/18 07/14/18 11:59 11:59 11:59 11:59 Intake Total 2634 / 2634 1000 / 1000 Balance 2634 / 2634 1000 / 1000 - Physical Exam Oriented: Normal Eyes: Normal Ear: Normal Nose: Normal Throat: Normal Respiratory: Normal Cardiovascular: Normal : Normal Auscultation: Bowel Sounds: Normal Palpation: Normal Tenderness: Normal Skin: Normal Musculoskeletal: Left, Hip, Leg, Back:Lumbar, Sensory Deficit Psychiatric: Normal Mood Description: Calm Affect: Normal Speech Pattern: Clear, Appropriate - Laboratory and Diagnostics Result Diagrams: 07/13/18 04:22 07/13/18 04:22 Labs: Laboratory WBC 8.9 X10^3/uL (3.6-10.0) 07/13/18 04:22 RBC 4.31 X10^6/uL (3.5-5.4) 07/13/18 04:22 Hgb 13.1 g/dL (12.0-16.0) 07/13/18 04:22 Hct 37.3 % (36.0-47.0) 07/13/18 04:22 MCV 86.4 fL (80.0-100.0) 07/13/18 04:22 MCH 30.4 pg (27.0-34.0) 07/13/18 04:22 MCHC 35.1 g/dL (33.0-35.0) H 07/13/18 04:22 RDW 13.2 % (11.6-16.5) 07/13/18 04:22 Plt Count 277 X10^3/uL (150.0-450.0) 07/13/18 04:22 MPV 7.9 fL (7.4-11.0) 07/13/18 04:22 Neut % (Auto) 77.7 % (42.0-75.0) H 07/13/18 04:22 Lymph % (Auto) 17.3 % (21.0-51.0) L 07/13/18 04:22 [place] % (Auto) 4.5 % (0.0-13.0) 07/13/18 04:22 Eos % (Auto) 0.1 % (0.9-2.9) L 07/13/18 04:22 Baso % (Auto) 0.4 % (0.2-1.0) 07/13/18 04:22 Neut # (Auto) 6.9 x10^3/uL (2.2-4.8) H 07/13/18 04:22 Lymph # (Auto) 1.5 X10^3/uL (1.3-2.9) 07/13/18 04:22 [place] # (Auto) 0.4 x10^3/uL (0.3-0.8) 07/13/18 04:22 Eos # (Auto) 0.0 x10^3/uL (0.0-0.2) 07/13/18 04:22 Baso # (Auto) 0.0 X10^3/uL (0.0-0.1) 07/13/18 04:22 Absolute Nucleated RBC 0.0 /100WBC 07/13/18 04:22 Sodium 141 mmol/L (136-145) 07/13/18 04:22 Corrected Sodium 143 mmol/L (136-145) 07/13/18 04:22 Potassium 3.7 mmol/L (3.5-5.1) 07/13/18 04:22 Chloride 104 mmol/L (98-107) 07/13/18 04:22 Carbon Dioxide 29.9 mmol/L (21-32) 07/13/18 04:22 BUN 14 mg/dL (7-18) 07/13/18 04:22 Creatinine 0.98 mg/dL (0.55-1.02) 07/13/18 04:22 Est GFR (MDRD) Af Amer > 60 (>60) 07/13/18 04:22 Est GFR (MDRD) Non-Af > 60 (>60) 07/13/18 04:22 Glucose 188 mg/dL (65-99) H 07/13/18 04:22 POC Glucose (mg/dL) 156 mg/dL (65-99) H 07/12/18 16:29 Calcium 8.7 mg/dL (8.5-10.1) 07/13/18 04:22 Corrected Calcium TNP 07/13/18 04:22 Total Bilirubin 0.30 mg/dL (0.2-1.0) 07/13/18 04:22 AST 11 Units/L (15-37) L 07/13/18 04:22 ALT 33 Units/L (12-78) 07/13/18 04:22 Alkaline Phosphatase 71 Units/L (46-116) 07/13/18 04:22 Total Protein 6.8 g/dL (6.4-8.2) 07/13/18 04:22 Albumin 3.4 g/dL (3.4-5.0) 07/13/18 04:22 Globulin 3.4 g/dL (2.5-4.5) 07/13/18 04:22 Albumin/Globulin Ratio 1.0 Ratio (1.1-2.1) L 07/13/18 04:22 - Plan (1) Intractable pain Status: Acute Plan: CONTINUE IV PAIN MEDICATION, CONTINUE ATIVAN, CONTINUE TO MONITOR (2) Back pain Status: Acute Qualifiers: Back pain location: low back pain Chronicity: unspecified Back pain laterality: left Sciatica presence: with sciatica Sciatica laterality: sciatica of left side Qualified Code(s): M54.42 - Lumbago with sciatica, left side (3) Sciatica of left side Status: Acute
[2018-07-13] MEDS: NEURONTIN CAP 300 MG PO SCH (21:14)
[2018-07-14] MEDS: DILAUDID INJ IVP PRN ×4 (02:04→15:45)
[2018-07-14] MEDS: NS 1000 ML 1,000 ML IV SCH ×2 (03:24→13:55)
[2018-07-14 05:09] LABS: BASOPHILS # (AUTO) 0.1 X10^3/uL (0.0-0.1); BASOPHILS % (AUTO) 0.8 % (0.2-1.0); EOSINOPHILS # (AUTO) 0.2 x10^3/uL (0.0-0.2); EOSINOPHILS % (AUTO) 2.3 % (0.9-2.9); HEMATOCRIT 35.6 % (36.0-47.0); HEMOGLOBIN 12.4 g/dL (12.0-16.0); LYMPHOCYTES # (AUTO) 4.2 X10^3/uL (1.3-2.9); LYMPHOCYTES % (AUTO) 51.9 % (21.0-51.0); MEAN CORPUSCULAR HEMOGLOBIN 30.4 pg (27.0-34.0); MEAN CORPUSCULAR HGB CONC 34.8 g/dL (33.0-35.0); MEAN CORPUSCULAR VOLUME 87.4 fL (80.0-100.0); MEAN PLATELET VOLUME 7.8 fL (7.4-11.0); MONOCYTES # (AUTO) 0.5 x10^3/uL (0.3-0.8); MONOCYTES % (AUTO) 6.5 % (0.0-13.0); NEUTROPHILS # (AUTO) 3.1 x10^3/uL (2.2-4.8); NEUTROPHILS % (AUTO) 38.5 % (42.0-75.0); PLATELET COUNT 260 X10^3/uL (150.0-450.0); RED BLOOD COUNT 4.08 X10^6/uL (3.5-5.4); RED CELL DISTRIBUTION WIDTH 13.2 % (11.6-16.5)
[2018-07-14 05:13] LABS: ALANINE AMINOTRANSFERASE 30 Units/L (12-78); ALBUMIN 3.3 g/dL (3.4-5.0); ALKALINE PHOSPHATASE 62 Units/L (46-116); ASPARTATE AMINO TRANSFERASE 13 Units/L (15-37); BLOOD UREA NITROGEN 13 mg/dL (7-18); CALCIUM 8.8 mg/dL (8.5-10.1); CARBON DIOXIDE 32.9 mmol/L (21-32); CHLORIDE 105 mmol/L (98-107); COR CA(FOR HYPOALB) 9.4 mg/dL (8.5-10.1); COR NA(FOR HYPERGLY) 142 mmol/L (136-145); CREATININE 0.87 mg/dL (0.55-1.02); SODIUM 142 mmol/L (136-145); TOTAL PROTEIN 6.6 g/dL (6.4-8.2); eGFR NON BLACK RACES > 60 (>60)
[2018-07-14] MEDS: ATIVAN TAB 1 MG PO SCH ×2 (05:25→14:30)
[2018-07-14] MEDS ORDERED: CYMBALTA PO SCH (09:00)
[2018-07-14] MEDS: COREG TAB 25 MG PO SCH (09:41)
[2018-07-14] MEDS: PROTONIX INJ 40 MG VIAL IVP SCH (09:41)
[2018-07-14] MEDS: COZAAR PO SCH (09:41)
[2018-07-14 10:39] VITALS: BP 148/78
--- NOTE | 2018-08-03 13:18 | DR.H&P ---
H&P - History & Physical for Day of: H&P Date: 07/12/18 - Chief Complaint Chief Complaint: BACK AND LEG PAIN - History of Present Illness History of Present Illness: PATIENT PRESENTS TO ED AND STATES WAS DISCHARGED YESTERDAY BUT EVER SINCE THEN BACK PAIN HAS BEEN WORSE AND NOT GENERALIZED JUST ON THE LEFT SIDE AND RADIATING DOWN LEFT LEG. STATES THEY WERE GIVING ATIVAN IN HOSPITAL AND DIDNT D/C HER WITH A PRESCRIPTION FOR ANY AND SHE NEEDS SOME FOR NERVES. - Past Medical History Past Medical History: Hypertension, Diabetes, Depression, Anxiety, Kidney Stones , Migraines - Past Surgical History Surgical History: Appendectomy, Cholecystectomy, Hysterectomy - Family History Family Medical History: Diabetes Mellitus, [place], Coronary Artery Disease, Heart Failure, Hypertension - Social History Does patient currently use any type of tobacco product: No Have you used tobacco products in the last 12 months: No Type of Tobacco Use: None Does any household member use tobacco: No Alcohol Use: None Drug Use: None - Medications Home Medications: acetaminophen [From Percocet] Allergy (Verified 07/09/18 18:19) alprazolam [From Xanax] Allergy (Verified 07/09/18 18:19) aspirin Allergy (Verified 07/07/18 23:22) diphenhydramine [From Benadryl] Allergy (Verified 07/07/18 23:22) ketorolac [From Toradol] Allergy (Verified 07/07/18 23:22) oxycodone [From Percocet] Allergy (Verified 07/09/18 18:19) Penicillins Allergy (Verified 07/07/18 23:22) promethazine [From Phenergan] Allergy (Verified 07/07/18 23:22) Nxqszxj-Jsd-Fie Reductase Inhibitor Allergy (Verified 07/07/18 23:22) STEROIDS Allergy (Uncoded 07/07/18 23:22) New Prescriptions duloxetine 30 mg PO DAILY #30 cap 07/14/18 [Rx] hydrocodone-acetaminophen [[place]] 1 tab PO Q6H PRN #20 tab 07/14/18 [Rx] lorazepam 1 mg PO TID #30 tab 07/14/18 [Rx] - Review of Systems Constitutional: No Symptoms Reported Eyes: No Symptoms Reported ENT: No Symptoms Reported Respiratory: No Symptoms Reported Cardiovascular: No Symptoms Reported Gastrointestinal: No Symptoms Reported Genitourinary: No Symptoms Reported Musculoskeletal: Back Pain, Leg Pain Skin: No Symptoms Reported Neurological: No Symptoms Reported - Physical Exam Vital Signs: Temperature 97.7 F Pulse Rate [Left Brachial] 68 Pulse Rate [Right] 81 Pulse Rate 71 Respiratory Rate 18 Blood Pressure [Left Arm] 148/78 Blood Pressure [Right Arm] 123/73 Blood Pressure 139/67 O2 Sat by Pulse Oximetry 92 Oriented: Normal Eyes: Normal Ear: Normal Nose: Normal Throat: Normal Respiratory: Clear Throughout Cardiovascular: Normal : Normal Auscultation: Bowel Sounds: Normal Palpation: Normal Tenderness: Normal Skin: Normal Musculoskeletal: Leg, Back:Lumbar Psychiatric: Anxiety Mood Description: Anxious Affect: Normal Speech Pattern: Clear - Assessment/Plan (1) Back pain Qualifiers: Back pain location: low back pain Chronicity: acute Back pain laterality : right Sciatica presence: without sciatica Qualified Code(s): M54.5 - Low back pain Status: Acute Plan: IV PAIN MEDS, MUSCLE RELAXANTS (2) Sciatica of left side Status: Acute Plan: PAIN MED NEEDED - Allergies Allergies/Adverse Reactions: Allergies Allergy/AdvReac Type Severity Reaction Status Date / Time acetaminophen [From Percocet] Allergy Verified 07/09/18 18:19 alprazolam [From Xanax] Allergy Verified 07/09/18 18:19 aspirin Allergy Verified 07/07/18 23:22 diphenhydramine Allergy Verified 07/07/18 23:22 [From Benadryl] ketorolac [From Toradol] Allergy Verified 07/07/18 23:22 oxycodone [From Percocet] Allergy Verified 07/09/18 18:19 Penicillins Allergy Verified 07/07/18 23:22 promethazine [From Phenergan] Allergy Verified 07/07/18 23:22 Bhhimkg-Dqq-Xxo Reductase Allergy Verified 07/07/18 23:22 Inhibitor STEROIDS Allergy Uncoded 07/07/18 23:22
--- NOTE | 2018-09-01 22:56 | DR.CARTERD ---
- Discharge Summary for: Discharge Summary for Date of:: 07/14/18 - Admission Date Date of Admission: 07/12/18 - Admission Diagnoses Admission Diagnosis: (1) Intractable pain (2) Back pain (3) Sciatica of left side - Discharge Date Discharge Date: 07/14/18 - Discharge Diagnoses Discharge Diagnosis: (1) Intractable pain (2) Back pain (3) Sciatica of left side - Hospital Course Hospital Course: Day one, Ms. Madera presented to the [facility] emergency room with complaints of left side hurting and pain radiated down left leg. Patient stated she was discharged the day before but ever since then, pain had been worse. She also stated they were giving Ativan in hospital and didnt d/c her with a prescription for any and she needed some for nerves. Patient was given Hydromorphone 2 MG IM once, Zofran 4 MG IM once, and Lorazepam 1 MG PO once in the emergency room. Patient was admitted to the hospital for further evaluation of intractable pain, fall, sciatica, and left hip pain. Medications: Hydromorphone 2 MG IVP Q4H PRN for pain, Zofran 4 MG IVP Q6H PRN for nausea, and NS 1000 MLS IV @ 80 MLS/HR. Hip X-Ray: No acute left hip injury demonstrated. Lumbar Spine X-Ray: Spine degenerative change without acute fracture. Shoulder X-Ray: No acute findings. Degenerative changes. In the setting of acute shoulder trauma, orthogonal views are helpful to exclude subtle glenohumeral abnormality. Knee X-Ray: No acute injury demonstrated. Pelvis CT: No acute fracture or malalignment of the bony pelvis. No acute intrapelvic process. 3. Stable chronic findings as above. Day two, patient stated that pain was worse than when she was discharged. She continued with complaints of pain and stated that she was having a difficult time performing adl's without severe pain. We discontinued Celexa and started Cymbalta. We continued to monitor. Day three, patient reported pain was improved. Patient reported pain was tolerable with po medications. Vital signs stable. Labs wnl. We planned for discharge. Instructions for medications and follow up were discussed with patient and family, both voiced understanding. Patient discharged home in stable condition with family. - Discharge Medications Discharge Medications: Home Medication List duloxetine 30 mg PO DAILY #30 cap 07/14/18 [Rx] hydrocodone-acetaminophen [[place]] 1 tab PO Q6H PRN #20 tab 07/14/18 [Rx] lorazepam 1 mg PO TID #30 tab 07/14/18 [Rx] Prescriptions: duloxetine Michele Briggs hydrocodone-acetaminophen [[place]] Michele Briggs lorazepam Michele Briggs Losartan Potassium [Losartan Potassium 50 mg] 50 mg PO DAILY 03/14/14 carvedilol [Coreg] 25 mg PO BID 03/14/14 nifedipine [Procardia XL] 30 mg PO HS 03/14/14 tramadol 50 mg PO Q8H PRN #15 tab 05/04/17 gabapentin [Neurontin] 300 mg PO HS 09/24/17 - Discharge Disposition Discharge Disposition: Patient is to follow up with OLIVERIO Kee in one week.
== END 2018-07-14 15:55 | disposition home or self-care (01) ==
LOC: ER 02:26 → MED/SURG 02:26
PROVIDERS: ADMIT Internal Medicine; ATTEND Internal Medicine
DX: I10 Essential (primary) hypertension; M25.551 Pain in right hip; M54.42 Lumbago with sciatica, left side; W18.39XA Other fall on same level, initial encounter; M85.88 Other specified disorders of bone density and structure, other site; E11.65 Type 2 diabetes mellitus with hyperglycemia
CPT/HCPCS: 36415; 72100; 72131; 72192; 73030; 73200; 73501; 73564; 80053; 85025; 96365; 96372; 99218; 99282; 99284; A4222; C9113; Q0177; G0378; J1170; J2405; J2920; J7030; J7050

== ENCOUNTER 2018-12-02 21:00 | Inpatient (IN) ==
[2018-12-02 21:29] VITALS: BMI 35.2
--- NOTE | 2018-12-02 21:54 | DR.GENAD ---
HPI Time Seen Time Seen by Provider: 12/02/18 21:39 PCP Primary Care Physician: LUIS E HPI Comment HPI Comment: SAW PNP AND MEDICATE WITH IM NUBAIN TODAY. PAIN CONTINUES MED WORE OFF. NO FEVER OR SINUS DRAINAGE. HISTORY OF MIGRAINE HEADACHE. NO TRAUMA. Complaint/Symptoms Chief Complaint Doctors Comments: HEADACHE, NAUSEA, VOMITING AND PHOTOPHOBIA. Chief Complaint:: STATES HAS HAD A MIGRAINE ALL DAY WENT TO [facility] AND WAS GIVEN A SHOT OF NUBAIN EARLIER BUT IT WORE OFF AND SHE IS STILL HURTING. Self Treatment fo Chief Complaint: NUBAIN HOME MEDICATIONS Nurses notes reviewed Nurses Notes Review: Yes Source History Provided: Patient Mode of Arrival Mode of Arrival: Ambulatory Timing Onset of Chief Complaint: 12/02/18 Came on: Suddenly Duration Duration: Constant Duration: Hours Severity Severity: Severe Modifying Factors Worsens:: NOISE, LIGHT. Improves:: NOTHING. Associated Signs and Symptoms Associated Signs and Symptoms: NAUSEA, VOMITING. Other History Other History: HISTORY MIGRAINE HEADACHE. PMH PMH Past Medical History: Yes Past Medical History: Anxiety, Depression, Diabetes, Migraines, Hypertension and Kidney Stones Past Surgical History: Yes Surgical History: Appendectomy, Cholecystectomy, Hysterectomy and Ortho Surgery Past Surgical History Comment: BACK/NECK Family History History of Family Medical Conditions: Yes Family Medical History: Diabetes Mellitus, [place], Coronary Artery Disease, Heart Failure and Hypertension Social History Does patient currently use any type of tobacco product: No Have you used tobacco products in the last 12 months: No Type of Tobacco Use: None Does any household member use tobacco: No Alcohol Use: None Do you use any recreational Drugs:: No Lives With: Family Lives Where: Home infectious screening In the last 2 months have you had wt loss of >10#?: NO Have you had fever, night sweats or hemotysis?: No Have you traveled outside the country in the last 6 months?: No Isolation: Standard ROS Review of Systems Constitutional: No Symptoms Reported; negative Fever Eyes: Photophobia ENTM: No Symptoms Reported Respiratoy: No Symptoms Reported Cardiovascular: No Symptoms Reported Gastrointestinal/Abdominal: Nausea and Vomiting Genitourinary: No Symptoms Reported Neurological: Headache Musculoskeletal: No Symptoms Reported Integumentary: No Symptoms Reported Hematologic/Lymphatic: No Symptoms Reported Endocrine: No Symptoms Reported Psychiatric: No Symptoms Reported All Other Systems: Reviewed and Negative PE Vital Signs Vitals: Temperature 97.5 F Pulse Rate [Brachial] 80 Pulse Rate 88 Respiratory Rate 20 Blood Pressure [Left Arm] 158/72 Blood Pressure [Right Arm] 155/77 Blood Pressure 146/81 O2 Sat by Pulse Oximetry 95 General Limitations: No Limitations General Appearance: Alert and In No Apparent Distress Head Head Exam: Normal Inspection Eyes Eye exam: Normal Appearance, PERRL and EOMI; negative Scleral Icterus and Conjunctival Injection ENT ENT Exam: Normal Exam External Ear Exam: Normal External Inspection TM/Canal Exam: Bilateral: Normal Nose Exam: Normal Nose Exam Mouth Exam: Normal Inspection Throat Exam: Normal Inspection Neck Neck Exam: Normal Inspection Chest Chest Inspection: Normal Inspection Respiratory Respiratory Exam: Normal Lung Sounds Bilat Respiratory Exam: Bilateral: Rhonchi and Lower: Rhonchi Cardiovascular Cardiovascular Exam: Regular Rate and Normal Rhythm Abdominal Exam Abdominal Exam: Normal Inspection, Normal Bowel Sounds and Soft; negative Tenderness Extremities Extremities Exam: Normal Inspection Back Back Exam: Normal Inspection Neurologic Neurological Exam: Alert and Oriented X3; negative Motor Sensory Deficit Psychiatric Psychiatric Exam: Normal Affect and Normal Mood Skin Skin Exam: Warm, Dry, Intact and Normal Color MDM Differential Diagnosis Differential Diagnosis: MIGRAINE HEADACHE, PERSISTENT NAUSEA AND VOMITING. COURSE Treatment Treatment: SEE ORDERS. IM DEMOROL AND ZOFRAN. PATIENTS PAIN IMPROVING. IM MORPHIN AND ZOFRAN. SLIGHT PAIN IMPROVEMENT. STILL NAUSEATED AND VOMITING. ALLERGIV TO PHENERGAN. DILAIDID HAVE CAUSE BEHAVIORAL PROBLEM IN PATIENT IN THE PAST. LANDS CHECK AND PATIENT ADMITTED. Consultation Consultation Comments: DISCUSS PATIENT WITH DR. FUCHS. HE WILL ADMIT PATIENT. Education/Counseling Education/Counseling: Patient Educated On: Diagnosis ROR Labs Reviewed Laboratory Results Reviewed?: Yes Result Diagrams: 12/03/18 04:47 12/03/18 04:47 Laboratory: WBC 9.2 X10^3/uL (3.6-10.0) 12/03/18 04:47 RBC 4.76 X10^6/uL (3.5-5.4) 12/03/18 04:47 Hgb 14.0 g/dL (12.0-16.0) 12/03/18 04:47 Hct 40.9 % (36.0-47.0) 12/03/18 04:47 MCV 85.8 fL (80.0-100.0) 12/03/18 04:47 MCH 29.4 pg (27.0-34.0) 12/03/18 04:47 MCHC 34.2 g/dL (33.0-35.0) 12/03/18 04:47 RDW 13.1 % (11.6-16.5) 12/03/18 04:47 Plt Count 298 X10^3/uL (150.0-450.0) 12/03/18 04:47 MPV 7.4 fL (7.4-11.0) 12/03/18 04:47 Neut % (Auto) 36.3 % (42.0-75.0) L 12/03/18 04:47 Lymph % (Auto) 53.6 % (21.0-51.0) H 12/03/18 04:47 [place] % (Auto) 6.6 % (0.0-13.0) 12/03/18 04:47 Eos % (Auto) 2.4 % (0.9-2.9) 12/03/18 04:47 Baso % (Auto) 1.1 % (0.2-1.0) H 12/03/18 04:47 Neut # (Auto) 3.4 x10^3/uL (2.2-4.8) 12/03/18 04:47 Lymph # (Auto) 5.0 X10^3/uL (1.3-2.9) H 12/03/18 04:47 [place] # (Auto) 0.6 x10^3/uL (0.3-0.8) 12/03/18 04:47 Eos # (Auto) 0.2 x10^3/uL (0.0-0.2) 12/03/18 04:47 Baso # (Auto) 0.1 X10^3/uL (0.0-0.1) 12/03/18 04:47 Absolute Nucleated RBC 0.1 /100WBC 12/03/18 04:47 Sodium 140 mmol/L (136-145) 12/03/18 04:47 Corrected Sodium 141 mmol/L (136-145) 12/03/18 04:47 Potassium 3.5 mmol/L (3.5-5.1) 12/03/18 04:47 Chloride 103 mmol/L (98-107) 12/03/18 04:47 Carbon Dioxide 25.3 mmol/L (21-32) 12/03/18 04:47 BUN 15 mg/dL (7-18) 12/03/18 04:47 Creatinine 1.01 mg/dL (0.55-1.02) 12/03/18 04:47 Est GFR (MDRD) Af Amer > 60 (>60) 12/03/18 04:47 Est GFR (MDRD) Non-Af 60 (>60) 12/03/18 04:47 Glucose 152 mg/dL (65-99) H 12/03/18 04:47 POC Glucose (mg/dL) 135 mg/dL (65-99) H 12/03/18 19:55 Calcium 9.0 mg/dL (8.5-10.1) 12/03/18 04:47 Corrected Calcium TNP 12/03/18 04:47 Magnesium 1.8 mg/dL (1.7-2.9) 12/03/18 18:55 Total Bilirubin 0.20 mg/dL (0.2-1.0) 12/03/18 04:47 AST 7 Units/L (15-37) L 12/03/18 04:47 ALT 23 Units/L (12-78) 12/03/18 04:47 Alkaline Phosphatase 81 Units/L (46-116) 12/03/18 04:47 Total Protein 7.3 g/dL (6.4-8.2) 12/03/18 04:47 Albumin 3.8 g/dL (3.4-5.0) 12/03/18 04:47 Globulin 3.5 g/dL (2.5-4.5) 12/03/18 04:47 Albumin/Globulin Ratio 1.1 Ratio (1.1-2.1) 12/03/18 04:47 Specimen Type Clean catch urine 12/03/18 08:06 Urine Color Yellow (YELLOW) 12/03/18 08:06 Urine Appearance Slightly hazy (CLEAR) 12/03/18 08:06 Urine pH 5.0 (5.0 - 8.0) 12/03/18 08:06 Ur Specific [place] 1.020 (1.000-1.030) 12/03/18 08:06 Urine Protein Negative (NEGATIVE) 12/03/18 08:06 Urine Glucose (UA) Negative (NEGATIVE) 12/03/18 08:06 Urine Ketones Negative (NEGATIVE) 12/03/18 08:06 Urine Occult Blood 1+ (NEGATIVE) 12/03/18 08:06 Urine Nitrite Negative (NEGATIVE) 12/03/18 08:06 Urine Bilirubin Negative (NEGATIVE) 12/03/18 08:06 Urine Urobilinogen Normal (NORMAL) 12/03/18 08:06 Ur Leukocyte Esterase 2+ (NEGATIVE) 12/03/18 08:06 Urine RBC 0-2 /HPF (NONE SEEN) 12/03/18 08:06 Urine WBC 5-10 /HPF (NONE SEEN) 12/03/18 08:06 Ur Squamous Epith Cells Moderate /HPF (NEGATIVE) 12/03/18 08:06 Urine Bacteria Trace /HPF (NEGATIVE) 12/03/18 08:06 Ur Culture Indicated? Yes/culture set up 12/03/18 08:06 Diagnosis Discharge Problem: Migraine Qualifiers: Migraine type: with aura Status migrainosus presence: with status migrainosus Intractability: intractable Qualified Code(s): G43.111 - Migraine with aura, intractable, with status migrainosus Instructions Instructions: Migraine Headache, [id number] Migraine Headache
[2018-12-02] MEDS ORDERED: ZOFRAN INJ 4 MG VIAL IM ONE ×2 (22:17→23:39)
[2018-12-02] MEDS ORDERED: DEMEROL INJ IM ONE (22:17)
[2018-12-02] MEDS ORDERED: ZOFRAN INJ 4 MG VIAL ONE ×2 (22:23→23:55)
[2018-12-02] MEDS ORDERED: DEMEROL INJ ONE (22:23)
[2018-12-02] MEDS ORDERED: MORPHINE SULFATE INJ 4 MG IM ONE (23:39)
[2018-12-02] MEDS ORDERED: MORPHINE SULFATE INJ 4 MG ONE (23:56)
[2018-12-03 01:39] LABS: ALANINE AMINOTRANSFERASE 25 Units/L (12-78); ALBUMIN 3.9 g/dL (3.4-5.0); ALKALINE PHOSPHATASE 91 Units/L (46-116); ASPARTATE AMINO TRANSFERASE < 6 Units/L (15-37); BLOOD UREA NITROGEN 16 mg/dL (7-18); CALCIUM 8.9 mg/dL (8.5-10.1); CARBON DIOXIDE 24.3 mmol/L (21-32); CHLORIDE 102 mmol/L (98-107); COR NA(FOR HYPERGLY) 141 mmol/L (136-145); CREATININE 1.06 mg/dL (0.55-1.02); SODIUM 139 mmol/L (136-145); TOTAL PROTEIN 7.5 g/dL (6.4-8.2); eGFR NON BLACK RACES 56 (>60)
[2018-12-03 02:19] LABS: BASOPHILS # (AUTO) 0.1 X10^3/uL (0.0-0.1); BASOPHILS % (AUTO) 1.5 % (0.2-1.0); EOSINOPHILS # (AUTO) 0.2 x10^3/uL (0.0-0.2); EOSINOPHILS % (AUTO) 2.4 % (0.9-2.9); HEMATOCRIT 41.4 % (36.0-47.0); HEMOGLOBIN 14.2 g/dL (12.0-16.0); LYMPHOCYTES # (AUTO) 5.2 X10^3/uL (1.3-2.9); LYMPHOCYTES % (AUTO) 56.6 % (21.0-51.0); MEAN CORPUSCULAR HEMOGLOBIN 29.6 pg (27.0-34.0); MEAN CORPUSCULAR HGB CONC 34.4 g/dL (33.0-35.0); MEAN CORPUSCULAR VOLUME 86.2 fL (80.0-100.0); MONOCYTES # (AUTO) 0.6 x10^3/uL (0.3-0.8); MONOCYTES % (AUTO) 6.3 % (0.0-13.0); NEUTROPHILS # (AUTO) 3.1 x10^3/uL (2.2-4.8); NEUTROPHILS % (AUTO) 33.2 % (42.0-75.0); PLATELET COUNT 300 X10^3/uL (150.0-450.0); RED BLOOD COUNT 4.81 X10^6/uL (3.5-5.4); WHITE BLOOD COUNT 9.2 X10^3/uL (3.6-10.0)
[2018-12-03] MEDS ORDERED: ZOFRAN INJ 4 MG VIAL ONE (03:17)
[2018-12-03] MEDS ORDERED: MORPHINE SULFATE INJ 4 MG ONE (03:18)
[2018-12-03] MEDS ORDERED: ZOFRAN INJ 4 MG VIAL IVP PRN (03:23)
[2018-12-03] MEDS: MORPHINE SULFATE INJ 4 MG IVP PRN ×5 (03:36→20:34)
[2018-12-03] MEDS: NS 1000 ML 1,000 ML IV SCH ×2 (05:05→16:31)
[2018-12-03 05:15] LABS: BASOPHILS # (AUTO) 0.1 X10^3/uL (0.0-0.1); BASOPHILS % (AUTO) 1.1 % (0.2-1.0); EOSINOPHILS # (AUTO) 0.2 x10^3/uL (0.0-0.2); EOSINOPHILS % (AUTO) 2.4 % (0.9-2.9); HEMATOCRIT 40.9 % (36.0-47.0); LYMPHOCYTES % (AUTO) 53.6 % (21.0-51.0); MEAN CORPUSCULAR HEMOGLOBIN 29.4 pg (27.0-34.0); MEAN CORPUSCULAR HGB CONC 34.2 g/dL (33.0-35.0); MEAN CORPUSCULAR VOLUME 85.8 fL (80.0-100.0); MEAN PLATELET VOLUME 7.4 fL (7.4-11.0); MONOCYTES # (AUTO) 0.6 x10^3/uL (0.3-0.8); MONOCYTES % (AUTO) 6.6 % (0.0-13.0); NEUTROPHILS # (AUTO) 3.4 x10^3/uL (2.2-4.8); NEUTROPHILS % (AUTO) 36.3 % (42.0-75.0); PLATELET COUNT 298 X10^3/uL (150.0-450.0); RED BLOOD COUNT 4.76 X10^6/uL (3.5-5.4); RED CELL DISTRIBUTION WIDTH 13.1 % (11.6-16.5); WHITE BLOOD COUNT 9.2 X10^3/uL (3.6-10.0)
[2018-12-03 05:34] LABS: ALANINE AMINOTRANSFERASE 23 Units/L (12-78); ALBUMIN 3.8 g/dL (3.4-5.0); ALKALINE PHOSPHATASE 81 Units/L (46-116); ASPARTATE AMINO TRANSFERASE 7 Units/L (15-37); BLOOD UREA NITROGEN 15 mg/dL (7-18); CARBON DIOXIDE 25.3 mmol/L (21-32); CHLORIDE 103 mmol/L (98-107); COR NA(FOR HYPERGLY) 141 mmol/L (136-145); CREATININE 1.01 mg/dL (0.55-1.02); SODIUM 140 mmol/L (136-145); TOTAL PROTEIN 7.3 g/dL (6.4-8.2); eGFR NON BLACK RACES 60 (>60)
[2018-12-03 08:23] LABS: APPEARANCE,URINE SLIGHTLY HAZY (CLEAR); BILIRUBIN,URINE NEGATIVE (NEGATIVE); BLOOD/HEMOGLOBIN,URINE 1+ (NEGATIVE); COLOR,URINE YELLOW (YELLOW); GLUCOSE, URINE NEGATIVE (NEGATIVE); KETONES,URINE NEGATIVE (NEGATIVE); LEUKOCYTE ESTERASE ,URINE 2+ (NEGATIVE); NITRITES,URINE NEGATIVE (NEGATIVE); PROTEIN,URINE NEGATIVE (NEGATIVE); UROBILINOGEN,URINE NORMAL (NORMAL)
[2018-12-03 08:32] LABS: BACTERIA,URINE TRACE /HPF (NEGATIVE); RBC,URINE 0-2 /HPF (NONE SEEN); SQUAMOUS EPITHELIAL CELL,UR MODERATE /HPF (NEGATIVE)
[2018-12-03] MEDS ORDERED: VALIUM INJ IVP ONE (10:04)
[2018-12-03] MEDS ORDERED: VALIUM INJ ONE (10:13)
[2018-12-03] MEDS: ZOFRAN INJ 4 MG VIAL IVP PRN (12:35)
[2018-12-03] MEDS ORDERED: FIORICET TAB PO ONE (15:36)
[2018-12-03] MEDS: FIORICET TAB PO PRN ×3 (15:40→23:30)
[2018-12-03] MEDS: VALIUM PO PRN (17:07)
[2018-12-03] MEDS ORDERED: POTASSIUM CHLORIDE LIQ 20 MEQ UDC PO PRN (18:43)
[2018-12-03] MEDS ORDERED: POTASSIUM CHL 40 MEQ/NS 0.45% 500 ML IV PRN (18:43)
[2018-12-03] MEDS ORDERED: K-RIDER 10 MEQ/NS 100 ML 10 MEQ/100 ML BAG IV PRN (18:43)
[2018-12-03] MEDS ORDERED: KLOR-CON PO PRN (18:43)
[2018-12-03] MEDS ORDERED: MICRO K EXTEN CAP 10 MEQ PO PRN (18:43)
[2018-12-03] MEDS ORDERED: POTASSIUM CHL 60 MEQ/NS 0.45% 500 ML IV PRN (18:43)
[2018-12-03] MEDS: K-DUR TAB 20 MEQ PO PRN ×2 (18:45→18:56)
[2018-12-03] MEDS ORDERED: K-DUR TAB 20 MEQ PO ONE (18:46)
[2018-12-03] MEDS ORDERED: VALIUM PO ONE (23:25)
[2018-12-04] MEDS: MORPHINE SULFATE INJ 4 MG IVP PRN ×4 (00:34→23:55)
[2018-12-04] MEDS: NS 1000 ML 1,000 ML IV SCH ×4 (04:46→19:03)
[2018-12-04 05:23] LABS: BASOPHILS % (AUTO) 0.4 % (0.2-1.0); EOSINOPHILS # (AUTO) 0.2 x10^3/uL (0.0-0.2); EOSINOPHILS % (AUTO) 2.4 % (0.9-2.9); HEMATOCRIT 38.9 % (36.0-47.0); HEMOGLOBIN 13.1 g/dL (12.0-16.0); LYMPHOCYTES # (AUTO) 3.8 X10^3/uL (1.3-2.9); LYMPHOCYTES % (AUTO) 56.3 % (21.0-51.0); MEAN CORPUSCULAR HEMOGLOBIN 29.2 pg (27.0-34.0); MEAN CORPUSCULAR HGB CONC 33.7 g/dL (33.0-35.0); MEAN CORPUSCULAR VOLUME 86.7 fL (80.0-100.0); MEAN PLATELET VOLUME 7.4 fL (7.4-11.0); MONOCYTES # (AUTO) 0.3 x10^3/uL (0.3-0.8); MONOCYTES % (AUTO) 5.1 % (0.0-13.0); NEUTROPHILS # (AUTO) 2.4 x10^3/uL (2.2-4.8); NEUTROPHILS % (AUTO) 35.8 % (42.0-75.0); PLATELET COUNT 260 X10^3/uL (150.0-450.0); RED BLOOD COUNT 4.49 X10^6/uL (3.5-5.4); RED CELL DISTRIBUTION WIDTH 13.2 % (11.6-16.5); WHITE BLOOD COUNT 6.8 X10^3/uL (3.6-10.0)
[2018-12-04 05:32] LABS: ALANINE AMINOTRANSFERASE 30 Units/L (12-78); ALBUMIN 3.5 g/dL (3.4-5.0); ALKALINE PHOSPHATASE 76 Units/L (46-116); ASPARTATE AMINO TRANSFERASE 21 Units/L (15-37); BLOOD UREA NITROGEN 12 mg/dL (7-18); CALCIUM 8.7 mg/dL (8.5-10.1); CARBON DIOXIDE 27.9 mmol/L (21-32); CHLORIDE 102 mmol/L (98-107); COR NA(FOR HYPERGLY) 141 mmol/L (136-145); CREATININE 0.95 mg/dL (0.55-1.02); SODIUM 140 mmol/L (136-145); TOTAL PROTEIN 6.8 g/dL (6.4-8.2); eGFR NON BLACK RACES > 60 (>60)
[2018-12-04] MEDS: K-DUR TAB 20 MEQ PO PRN (06:53)
[2018-12-04] MEDS: COLACE CAP 100 MG PO SCH ×2 (08:45→20:49)
[2018-12-04] MEDS ORDERED: IMITREX INJ SC ONE (10:12)
[2018-12-04] MEDS: COREG TAB 25 MG PO SCH ×2 (11:18→20:36)
[2018-12-04] MEDS: TOPAMAX PO SCH ×2 (11:18→20:36)
[2018-12-04] MEDS: COZAAR PO SCH (11:18)
[2018-12-04] MEDS: ZOFRAN INJ 4 MG VIAL IVP PRN (11:24)
[2018-12-04] MEDS ORDERED: VALIUM INJ IVP ONE (11:55)
[2018-12-04] MEDS ORDERED: ATIVAN INJ 2 MG VIAL ONE (11:58)
[2018-12-04] MEDS ORDERED: ATIVAN INJ 2 MG VIAL IVP ONE (12:00)
[2018-12-04] MEDS ORDERED: DILAUDID INJ ONE (16:10)
[2018-12-04] MEDS: NEURONTIN CAP 300 MG PO SCH (20:36)
[2018-12-04] MEDS: CYMBALTA PO SCH (20:36)
[2018-12-04] MEDS: DILAUDID INJ IVP PRN (20:37)
[2018-12-05] MEDS: DILAUDID INJ IVP PRN ×4 (01:45→20:49)
[2018-12-05] MEDS: NS 1000 ML 1,000 ML IV SCH ×3 (05:44→20:47)
[2018-12-05 06:26] LABS: BASOPHILS # (AUTO) 0.1 X10^3/uL (0.0-0.1); BASOPHILS % (AUTO) 0.7 % (0.2-1.0); EOSINOPHILS # (AUTO) 0.2 x10^3/uL (0.0-0.2); EOSINOPHILS % (AUTO) 2.2 % (0.9-2.9); HEMATOCRIT 38.2 % (36.0-47.0); HEMOGLOBIN 13.1 g/dL (12.0-16.0); LYMPHOCYTES # (AUTO) 3.5 X10^3/uL (1.3-2.9); LYMPHOCYTES % (AUTO) 47.9 % (21.0-51.0); MEAN CORPUSCULAR HEMOGLOBIN 29.4 pg (27.0-34.0); MEAN CORPUSCULAR HGB CONC 34.4 g/dL (33.0-35.0); MEAN CORPUSCULAR VOLUME 85.6 fL (80.0-100.0); MEAN PLATELET VOLUME 7.1 fL (7.4-11.0); MONOCYTES # (AUTO) 0.5 x10^3/uL (0.3-0.8); MONOCYTES % (AUTO) 6.5 % (0.0-13.0); NEUTROPHILS # (AUTO) 3.1 x10^3/uL (2.2-4.8); NEUTROPHILS % (AUTO) 42.7 % (42.0-75.0); PLATELET COUNT 234 X10^3/uL (150.0-450.0); RED BLOOD COUNT 4.47 X10^6/uL (3.5-5.4); RED CELL DISTRIBUTION WIDTH 12.9 % (11.6-16.5); WHITE BLOOD COUNT 7.3 X10^3/uL (3.6-10.0)
[2018-12-05 06:44] LABS: ALANINE AMINOTRANSFERASE 31 Units/L (12-78); ALBUMIN 3.5 g/dL (3.4-5.0); ALKALINE PHOSPHATASE 75 Units/L (46-116); ASPARTATE AMINO TRANSFERASE 26 Units/L (15-37); BLOOD UREA NITROGEN 14 mg/dL (7-18); CALCIUM 9.2 mg/dL (8.5-10.1); CARBON DIOXIDE 27.4 mmol/L (21-32); CHLORIDE 100 mmol/L (98-107); COR NA(FOR HYPERGLY) 139 mmol/L (136-145); CREATININE 0.96 mg/dL (0.55-1.02); SODIUM 138 mmol/L (136-145); TOTAL PROTEIN 6.9 g/dL (6.4-8.2); eGFR NON BLACK RACES > 60 (>60)
[2018-12-05] MEDS: COLACE CAP 100 MG PO SCH ×2 (08:09→21:01)
[2018-12-05] MEDS: COZAAR PO SCH (08:09)
[2018-12-05] MEDS: COREG TAB 25 MG PO SCH ×2 (08:09→20:49)
[2018-12-05] MEDS: TOPAMAX PO SCH ×2 (08:09→20:49)
[2018-12-05] MEDS: CIPRO IV 400 MG PREMIX* 400 MG/200 ML IV.SOLN. IV SCH ×2 (10:26→20:45)
[2018-12-05] MEDS: MORPHINE SULFATE INJ 4 MG IVP PRN ×2 (10:44→18:19)
[2018-12-05] MEDS: ZOFRAN INJ 4 MG VIAL IVP PRN ×2 (13:17→18:20)
--- NOTE | 2018-12-05 15:20 | CT ---
CT of the head without contrast Indication: Headache Comparison: MRI of the brain done October 11, 2018. Technique: 5 mm axial images of the brain were obtained with coronal and sagittal reformats generated from the original data set. Findings: There is no intracranial hemorrhage, mass effect or evidence of acute ischemia. The ventricles are normal. There is a stable appearing posterior fossa arachnoid cyst. The visualized paranasal sinuses and mastoid air cells are clear bilaterally. The globes, orbits and sella show no abnormality. Conclusion: No evidence of intracranial hemorrhage or hypodensity to suggest recent ischemia. Stable posterior fossa arachnoid cyst. Reported By:
--- NOTE | 2018-12-05 15:24 | CT ---
HISTORY: Headache Study: CT paranasal sinuses without contrast Comparison: None Technique: Multiple axial images of the paranasal sinuses were obtained without the administration of IV contrast. Coronal and sagittal reformats were performed and reviewed. Findings: Images demonstrate minimal mucosal thickening of the ethmoid air cells. Otherwise the frontal, maxillary, and sphenoid sinuses are well aerated without evidence of significant mucosal thickening or air-fluid levels. The nasal septum is slightly to the left. The ostiomeatal complexes are patent bilaterally. A left-sided posterior fossa arachnoid cyst is again demonstrated and is not appear to significantly change when compared to previous CT of the head performed on July 15, 2018. IMPRESSION: Minimal mucosal thickening of the ethmoid air cells. Left-sided posterior fossa arachnoid cyst which has not significantly changed. Reported By:
--- NOTE | 2018-12-05 20:24 | DR.H&P ---
H&P - History & Physical for Day of: H&P Date: 12/03/18 - Chief Complaint Chief Complaint: HEACACHE, NAUSEA, VOMITING - History of Present Illness History of Present Illness: IS A 58 YEAR OLD PATIENT OF [facility] WHO PRESENTED TO THE ER WITH COMPLAINTS OF HEADACHE, NAUSEA, VOMITING, AND INCREASED SENSITIVITY TO LIGHT. SHE REPORTS THAT SYMPTOMS STARTED EARLIER TODAY. 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 SHE DENIES TRAUMA, FEVER, OR SINUS DRAINAGE. ON ARRIVAL TO THE ER, VITALS WERE 96.1-88-18-96%-146/81. LABS WERE OBTAINED. ABNORMAL LAB VALUES INCLUDE THE FOLLOWING: CREATININE 1.06, GLUCOSE 168, AST < 6. A BRAIN MRI WAS OBTAINED ON 10/11/2018 AND REVEALED: No evidence of acute intracranial abnormality. Posterior fossa arachnoid cyst, unchanged. SHE WAS ADMITTED FOR FURTHER EVALUATION AND TREATMENT OF INTRACTABLE PAIN/HEADACHE. SHE WAS STARTED ON NORMAL SALINE AT 80ML/HR, MORPHINE 4MG IV Q4H PRN, AND ZOFRAN 4MG IV Q6H PRN. WE WILL ALSO START VALIUM 5MG TID PRN THIS MORNING. OTHERWISE, WE WILL FOLLOW UP WITH AM LABS AND CONTINUE TO MONITOR. - Past Medical History Past Medical History: Hypertension, Diabetes, Depression, Anxiety, Kidney Stones, Migraines - Past Surgical History Surgical History: Appendectomy, Cholecystectomy, Hysterectomy, Ortho Surgery - Family History Family Medical History: Diabetes Mellitus, [place], Coronary Artery Disease, Heart Failure, Hypertension - Social History Does patient currently use any type of tobacco product: No Have you used tobacco products in the last 12 months: No Type of Tobacco Use: None Does any household member use tobacco: No Alcohol Use: None Drug Use: None - Medications Home Medications: acetaminophen [From Percocet] Allergy (Verified 07/09/18 18:19) alprazolam [From Xanax] Allergy (Verified 07/09/18 18:19) aspirin Allergy (Verified 07/07/18 23:22) diphenhydramine [From Benadryl] Allergy (Verified 07/07/18 23:22) ketorolac [From Toradol] Allergy (Verified 07/07/18 23:22) oxycodone [From Percocet] Allergy (Verified 07/09/18 18:19) Penicillins Allergy (Verified 07/07/18 23:22) promethazine [From Phenergan] Allergy (Verified 07/07/18 23:22) Dhklnwf-Vvy-Vzn Reductase Inhibitor Allergy (Verified 07/07/18 23:22) STEROIDS Allergy (Uncoded 07/07/18 23:22) CONTINUE taking the following medications ergocalciferol (vitamin D2) [Vitamin D2] 1 cap PO WEEKLY 12/03/18 [History] hydrocodone-acetaminophen 10 - 325 mg PO BID PRN 12/03/18 [History] New Prescriptions diazepam [Valium] 5 mg PO TID PRN #15 tab 12/03/18 [Rx] - Review of Systems Constitutional: No Symptoms Reported Eyes: See HPI ENT: No Symptoms Reported Respiratory: No Symptoms Reported Cardiovascular: No Symptoms Reported Gastrointestinal: See HPI, Nausea, Vomiting Genitourinary: No Symptoms Reported Musculoskeletal: No Symptoms Reported Skin: No Symptoms Reported Neurological: See HPI, Other (HEADACHE ) - Physical Exam Vital Signs: Temperature 98.0 F Pulse Rate [Brachial] 72 Pulse Rate 81 Respiratory Rate 20 Blood Pressure [Left Arm] 158/72 Blood Pressure [Right Arm] 128/61 Blood Pressure 146/81 O2 Sat by Pulse Oximetry 97 Oriented: Normal Eyes: Photophobia Ear: Normal Nose: Normal Throat: Normal Respiratory: Clear Throughout Cardiovascular: Normal : Normal Auscultation: Bowel Sounds: Normal Palpation: Normal Tenderness: Normal Skin: Normal Musculoskeletal: Normal Psychiatric: Anxiety Mood Description: Anxious Affect: Anxious Speech Pattern: Clear - Assessment/Plan (1) Migraine Qualifiers: Migraine type: with aura Status migrainosus presence: with status migrainosus Intractability: intractable Qualified Code(s): G43.111 - Migraine with aura, intractable, with status migrainosus Status: Acute (2) Intractable pain Status: Acute - Allergies Allergies/Adverse Reactions: Allergies Allergy/AdvReac Type Severity Reaction Status Date / Time acetaminophen [From Percocet] Allergy Verified 07/09/18 18:19 alprazolam [From Xanax] Allergy Verified 07/09/18 18:19 aspirin Allergy Verified 07/07/18 23:22 diphenhydramine Allergy Verified 07/07/18 23:22 [From Benadryl] ketorolac [From Toradol] Allergy Verified 07/07/18 23:22 oxycodone [From Percocet] Allergy Verified 07/09/18 18:19 Penicillins Allergy Verified 07/07/18 23:22 promethazine [From Phenergan] Allergy Verified 07/07/18 23:22 Thfpyks-Kfw-Ddv Reductase Allergy Verified 07/07/18 23:22 Inhibitor STEROIDS Allergy Uncoded 07/07/18 23:22
[2018-12-05] MEDS: NEURONTIN CAP 300 MG PO SCH (20:49)
[2018-12-05] MEDS: VALIUM PO PRN (20:49)
[2018-12-05] MEDS: CYMBALTA PO SCH (20:49)
[2018-12-06] MEDS ORDERED: ATARAX TAB 10 MG PO PRN (01:05)
[2018-12-06] MEDS ORDERED: ATARAX TAB 10 MG PO ONE (01:06)
[2018-12-06] MEDS: DILAUDID INJ IVP PRN (01:20)
[2018-12-06 05:26] LABS: BASOPHILS # (AUTO) 0.1 X10^3/uL (0.0-0.1); BASOPHILS % (AUTO) 1.8 % (0.2-1.0); EOSINOPHILS # (AUTO) 0.2 x10^3/uL (0.0-0.2); EOSINOPHILS % (AUTO) 2.6 % (0.9-2.9); HEMATOCRIT 37.9 % (36.0-47.0); HEMOGLOBIN 12.9 g/dL (12.0-16.0); LYMPHOCYTES # (AUTO) 3.3 X10^3/uL (1.3-2.9); LYMPHOCYTES % (AUTO) 47.8 % (21.0-51.0); MEAN CORPUSCULAR HEMOGLOBIN 29.5 pg (27.0-34.0); MEAN CORPUSCULAR VOLUME 86.6 fL (80.0-100.0); MEAN PLATELET VOLUME 7.3 fL (7.4-11.0); MONOCYTES # (AUTO) 0.4 x10^3/uL (0.3-0.8); NEUTROPHILS # (AUTO) 2.9 x10^3/uL (2.2-4.8); NEUTROPHILS % (AUTO) 41.8 % (42.0-75.0); PLATELET COUNT 209 X10^3/uL (150.0-450.0); RED BLOOD COUNT 4.37 X10^6/uL (3.5-5.4); RED CELL DISTRIBUTION WIDTH 12.9 % (11.6-16.5); WHITE BLOOD COUNT 6.8 X10^3/uL (3.6-10.0)
[2018-12-06 05:35] LABS: ALANINE AMINOTRANSFERASE 31 Units/L (12-78); ALBUMIN 3.3 g/dL (3.4-5.0); ALKALINE PHOSPHATASE 69 Units/L (46-116); ASPARTATE AMINO TRANSFERASE 20 Units/L (15-37); BLOOD UREA NITROGEN 14 mg/dL (7-18); CHLORIDE 104 mmol/L (98-107); COR CA(FOR HYPOALB) 9.6 mg/dL (8.5-10.1); COR NA(FOR HYPERGLY) 141 mmol/L (136-145); CREATININE 0.99 mg/dL (0.55-1.02); SODIUM 140 mmol/L (136-145); TOTAL PROTEIN 6.5 g/dL (6.4-8.2); eGFR NON BLACK RACES > 60 (>60)
[2018-12-06] MEDS: COREG TAB 25 MG PO SCH (09:04)
[2018-12-06] MEDS: COLACE CAP 100 MG PO SCH (09:04)
[2018-12-06] MEDS: CIPRO IV 400 MG PREMIX* 400 MG/200 ML IV.SOLN. IV SCH ×2 (09:04→09:06)
[2018-12-06] MEDS: NS 1000 ML 1,000 ML IV SCH (09:04)
[2018-12-06] MEDS: COZAAR PO SCH (09:04)
[2018-12-06] MEDS: TOPAMAX PO SCH (09:04)
[2018-12-06] MEDS: ZOFRAN INJ 4 MG VIAL IVP PRN (10:21)
[2018-12-06] MEDS: FIORICET TAB PO PRN (10:21)
[2018-12-06] MEDS: MORPHINE SULFATE INJ 4 MG IVP PRN (11:35)
[2018-12-06 14:56] VITALS: BP 159/77
== END 2018-12-06 12:45 | disposition home or self-care (01) | DRG 103 ==
LOC: MED/SURG 21:16 → ER 21:16 → MED/SURG 12-03 03:43
PROVIDERS: ADMIT Internal Medicine; ATTEND Internal Medicine
DX: N39.0 Urinary tract infection, site not specified; I10 Essential (primary) hypertension; G43.111 Migraine with aura, intractable, with status migrainosus; F41.1 Generalized anxiety disorder
CPT/HCPCS: 36415; 70450; 70486; 80053; 81001; 83735; 85025; 87086; 87088; 87186; 94760; 96365; 96372; 96374; 96375; 99231; 99284; A4222; G0378; J0744; J1170; J2060; J2175; J2270; J2405; J3030; J3360; J7030